=== PATIENT | male | born 1935 | race Hispanic/Latino ===

== ENCOUNTER → 2017-10-10 | Outpatient (CLI) | payer OTHER ==
[~2017-10-10] MED LIST: REGADENOSON 0.4 MG/5 ML PF SYG IVP SCH
== END | disposition home or self-care (01) ==
LOC: SHCH 15:31
PROVIDERS: ATTEND Internal Medicine Cardiovascular Disease
DX: I25.119 Atherosclerotic heart disease of native coronary artery with unspecified angina pectoris (principal); I10 Essential (primary) hypertension
CPT/HCPCS: 78452; 93017; 96374; A9500 ×2; J2785

== ENCOUNTER → 2020-07-14 | Outpatient (CLI) | payer OTHER | END | disposition home or self-care (01) | LOC: RAH 15:13 | PROVIDERS: ATTEND Family Medicine | DX: M25.562 Pain in left knee (principal) | CPT/HCPCS: 73562 ==

== ENCOUNTER → 2020-10-24 | Outpatient (CLI) | payer OTHER | END | disposition home or self-care (01) | LOC: RAH 09:48 | PROVIDERS: ATTEND Internal Medicine | DX: K21.9 Gastro-esophageal reflux disease without esophagitis (principal); R13.10 Dysphagia, unspecified | CPT/HCPCS: 74230; 92611 ==

== ENCOUNTER → 2021-03-15 | Outpatient (CLI) | payer OTHER | END | disposition home or self-care (01) | LOC: SHCH 08:51 | PROVIDERS: ATTEND Internal Medicine Cardiovascular Disease | DX: I10 Essential (primary) hypertension (principal) | CPT/HCPCS: 93306; 93356 ==

== ENCOUNTER 2021-12-24 10:00 | Inpatient (IN) | payer OTHER ==
[~2021-12-24] VITALS: Ht 162.6 cm; Wt 68.0 kg
[2021-12-24 09:46] LABS: BASOPHILS % (AUTO) 0.4 % (0.0-5.0); EOSINOPHILS % (AUTO) 1.2 % (0.0-8.0); HEMATOCRIT 34.1 % (42-54); LYMPHOCYTES % (AUTO) 17.4 % (21.0-51.0); MEAN CORPUSCULAR HGB CONC 32.8 g/dL (32.0-36.0); MEAN CORPUSCULAR VOLUME 97.4 fL (79-99); MONOCYTES % (AUTO) 10.7 % (3.0-13.0); NEUTROPHILS % (AUTO) 70.1 % (40.0-77.0); PLATELET COUNT (AUTO) 233 K/uL (130-400); RED CELL DISTRIBUTION WIDTH 13.3 % (11.0-15.5); WHITE BLOOD COUNT (AUTO) 5.1 K/uL (4.8-10.8)
[2021-12-24 09:47] LABS: APPEARANCE,URINE Clear (CLEAR); BILIRUBIN,URINE Negative (NEGATIVE); COLOR,URINE Yellow (YELLOW); GLUCOSE, URINE (UA) Negative (NEGATIVE); KETONES,URINE 15 mg/dL (NEGATIVE); LEUKOCYTE ESTERASE ,URINE Negative (NEGATIVE); NITRATE,URINE Negative (NEGATIVE); OCCULT BLOOD,URINE Negative (NEGATIVE); PH,URINE 5.5 (5.0-8.0); PROTEIN,URINE POS 1+ mg/dL (NEGATIVE)
[2021-12-24 09:54] LABS: BACTERIA,URINE Rare /HPF (None Seen); CREATININE 0.9 mg/dL (0.5-1.5); MUCUS,URINE Moderate LPF (None Seen); POTASSIUM 4.2 mmol/L (3.5-5.1); RBC,URINE 0-1 /HPF (0-1); SQUAMOUS EPITHELIAL CELL,UR Rare /HPF (0-2); WBC,URINE 0-1 /HPF (0-1)
[2021-12-24 09:57] LABS: INR 1.05 (0.85-1.15); PROTHROMBIN TIME 11.4 SEC (9.6-11.6)
[2021-12-24 10:48] VITALS: BP 145/65
[2021-12-25] MEDS ORDERED: IRON PO (12:09)
[2021-12-25] MEDS ORDERED: METO-391 PO (12:09)
[2021-12-25] MEDS ORDERED: OMEP20CA12 PO (12:09)
[2021-12-25] MEDS ORDERED: LOSA50TA64 PO (12:09)
[2021-12-25] MEDS ORDERED: ATOR40TA71 PO (12:09)
[2021-12-25] MEDS ORDERED: LATA7.5D OU (12:09)
[2021-12-25] MEDS ORDERED: ASPI-1443 PO (12:09)
[2021-12-25] MEDS ORDERED: MIRA25TA PO (12:09)
[2021-12-25] MEDS ORDERED: TAMS-1 PO (12:09)
[2021-12-26] VITALS (25 sets, daily range): BP systolic 86–130; BP diastolic 42–75
[2021-12-26] MEDS ORDERED: CLINDAMYCIN IVPB 900MG/50ML 50 ML IV ONE (07:29)
[2021-12-26] MEDS ORDERED: LACTATED RINGERS 1000ML 1,000 ML IV ONE (07:30)
[2021-12-26] MEDS ORDERED: ACETAMINOPHEN 500 MG TABLET ONE (08:43)
[2021-12-26] MEDS ORDERED: CELECOXIB 200 MG CAP ONE (08:44)
[2021-12-26] MEDS ORDERED: KETOROLAC 15MG/ML VIAL (15MG/ML) ONE (08:44)
[2021-12-26] MEDS ORDERED: TRANEXAMIC ACID 1000MG/10ML ONE ×2 (10:23→15:31)
[2021-12-26] MEDS ORDERED: VANCOMYCIN 1G VIAL ONE (10:36)
[2021-12-26] MEDS ORDERED: NEOSTIGMINE 5MG/5ML SYR IV ONE ×3 (11:06→15:24)
[2021-12-26] MEDS ORDERED: MIDAZOLAM HCL 1 MG/ML 2ML VIAL ONE (11:06)
[2021-12-26] MEDS ORDERED: DEXAMETHASONE SOD PHOSPHATE 10MG/ML 1ML VIAL ONE (11:06)
[2021-12-26] MEDS ORDERED: LIDOCAINE PF 100MG/5ML (2%) SYRINGE 5ML ONE ×2 (11:06→11:08)
[2021-12-26] MEDS ORDERED: SUCCINYLCHOLINE CHLORIDE 20 MG/ML 10 ML VIAL ONE ×2 (11:06→11:07)
[2021-12-26] MEDS ORDERED: GLYCOPYRROLATE 1 MG/5 ML SYRINGE ONE ×2 (11:06→15:24)
[2021-12-26] MEDS ORDERED: PROPOFOL 10 MG/ML 20ML VIAL IV ONE ×2 (11:06→15:26)
[2021-12-26] MEDS ORDERED: FENTANYL CITRATE PF 50 MCG/1 ML 2ML VIAL ONE ×2 (11:07→15:32)
[2021-12-26] MEDS ORDERED: ROCURONIUM 10MG/1ML SYR 10 MG/ML ML ONE ×2 (11:07→11:54)
[2021-12-26] MEDS ORDERED: ROPIVACAINE 0.5% 5MG/ML 30ML IJ ONE (11:12)
[2021-12-26] MEDS ORDERED: PHENYLEPHRINE HCL 10 MG/ML 1ML VIAL IV ONE ×3 (11:35→13:20)
[2021-12-26] MEDS ORDERED: VANCOMYCIN 1G VIAL IRRIG ONE ×2 (12:10)
[2021-12-26] MEDS ORDERED: TRANEXAMIC ACID 1000MG/10ML IV ONE (13:00)
[2021-12-26] MEDS ORDERED: 0.9% NACL 250ML IV SCH (15:30)
[2021-12-26] MEDS ORDERED: DiphenhydrAMINE HCL 50 MG/ML VIAL IVP PRN (15:30)
[2021-12-26] MEDS: 0.9%NACL 1000ML 1,000 ML IV SCH (15:30)
[2021-12-26] MEDS ORDERED: OXYCODONE HCL 5 MG TAB PO PRN ×2 (15:30)
[2021-12-26] MEDS: VANCOMYCIN KIT 1 GM/250 ML IV.KIT IV SCH (15:30)
[2021-12-26] MEDS: ACETAMINOPHEN 500 MG TABLET PO SCH ×2 (15:30→23:47)
[2021-12-26] MEDS ORDERED: POTASSIUM CHLORIDE 20MEQ/100ML 100 ML IV PRN (15:30)
[2021-12-26] MEDS ORDERED: CALCIUM CARB 500MG PO PRN (15:30)
[2021-12-26] MEDS ORDERED: LIDOCAINE HCL-MPF 1% 2ML VIAL IV PRN (15:30)
[2021-12-26] MEDS ORDERED: TRAMADOL HCL 50 MG TABLET PO PRN (15:30)
[2021-12-26] MEDS ORDERED: POTASSIUM CHLORIDE 10% ELIXIR 20 MEQ/15 ML UDCUP PO PRN (15:30)
[2021-12-26] MEDS ORDERED: KCL 20 MEQ ERTAB PO PRN (15:30)
[2021-12-26] MEDS ORDERED: ONDANSETRON 4MG INJ IVP PRN (15:30)
[2021-12-26] MEDS ORDERED: KETOROLAC 15MG/ML VIAL (15MG/ML) IV PRN (15:30)
[2021-12-26] MEDS ORDERED: MEPERIDINE-PF 25 MG/ML SYG ONE (15:56)
[2021-12-26] MEDS: TAMSULOSIN HCL 0.4 MG CAP.ER.24H PO SCH ×2 (21:00→21:10)
[2021-12-26] MEDS: LATANOPROST 2.5 ML DROPS OU SCH (21:00)
[2021-12-26] MEDS ORDERED: FAMOTIDINE 20MG TAB PO SCH (21:00)
[2021-12-26] MEDS: CLINDAMYCIN IVPB 900MG/50ML 50 ML IV SCH (21:09)
[2021-12-26] MEDS: ASPIRIN 81 MG EC TAB PO SCH (21:10)
[2021-12-26] MEDS: CELECOXIB 200 MG CAP PO SCH (21:10)
[2021-12-26] MEDS: METOPROLOL SUCCINATE 50 MG TAB.SR.24H PO SCH (21:11)
[2021-12-27 03:54] LABS: HEMATOCRIT 23.1 % (42-54); MEAN CORPUSCULAR HEMOGLOBIN 30.8 pg (27.0-33.0); MEAN CORPUSCULAR VOLUME 96.3 fL (79-99); RED BLOOD CELL COUNT(AUTO) 2.4 MIL/uL (4.50-6.20); RED CELL DISTRIBUTION WIDTH 13.1 % (11.0-15.5); WHITE BLOOD COUNT (AUTO) 6.5 K/uL (4.8-10.8)
[2021-12-27 04:10] LABS: CREATININE 0.9 mg/dL (0.5-1.5); POTASSIUM 4.5 mmol/L (3.5-5.1)
[2021-12-27 04:11] VITALS: BP 108/55
[2021-12-27] MEDS: 0.9%NACL 1000ML 1,000 ML IV SCH ×2 (06:57→11:28)
[2021-12-27 07:00] VITALS: BP 115/64
[2021-12-27] MEDS: ASPIRIN 81 MG EC TAB PO SCH ×3 (08:23→21:27)
[2021-12-27] MEDS: PANTOPRAZOLE 40 MG TAB DR PO SCH (08:23)
[2021-12-27] MEDS: TAMSULOSIN HCL 0.4 MG CAP.ER.24H PO SCH ×5 (08:24→21:27)
[2021-12-27] MEDS: ATORVASTATIN 40 MG TABLET PO SCH (08:24)
[2021-12-27] MEDS: CELECOXIB 200 MG CAP PO SCH ×2 (08:24→21:27)
[2021-12-27] MEDS: POLYETHYLENE GLYCOL 3350 17 GM POWD.PACK PO SCH (08:24)
[2021-12-27] MEDS: Iron 28 MG PO SCH (08:33)
[2021-12-27] MEDS ORDERED: CLINDAMYCIN IVPB 900MG/50ML 50 ML IV SCH (09:00)
[2021-12-27] MEDS: CLINDAMYCIN IVPB 900MG/50ML 50 ML IV SCH (09:00)
[2021-12-27] MEDS: METOPROLOL SUCCINATE 50 MG TAB.SR.24H PO SCH ×2 (09:00→21:27)
[2021-12-27] MEDS: LOSARTAN 50 MG TABLET PO SCH (09:00)
[2021-12-27] MEDS: FERROUS FUMARATE 324 MG TABLET PO PRN (09:00)
[2021-12-27 11:00] VITALS: BP 115/56
[2021-12-27] MEDS: ACETAMINOPHEN 500 MG TABLET PO SCH ×2 (14:28→21:28)
[2021-12-27 15:00] VITALS: BP 97/47
[2021-12-27] MEDS: VANCOMYCIN KIT 1 GM/250 ML IV.KIT IV SCH (16:35)
[2021-12-27 20:08] VITALS: BP 112/58
[2021-12-27] MEDS: LATANOPROST 2.5 ML DROPS OU SCH (21:00)
[2021-12-27 23:50] VITALS: BP 99/50
[2021-12-28 04:18] VITALS: BP 90/47
[2021-12-28 05:01] LABS: HEMATOCRIT 21.8 % (42-54)
[2021-12-28 06:00] VITALS: BP 115/60
[2021-12-28] MEDS: ACETAMINOPHEN 500 MG TABLET PO SCH ×3 (06:01→20:14)
[2021-12-28 08:00] VITALS: BP 119/46
[2021-12-28] MEDS: TAMSULOSIN HCL 0.4 MG CAP.ER.24H PO SCH ×5 (09:00→20:16)
[2021-12-28] MEDS: Iron 28 MG PO SCH (09:00)
[2021-12-28] MEDS: METOPROLOL SUCCINATE 50 MG TAB.SR.24H PO SCH ×2 (09:00→20:14)
[2021-12-28] MEDS: ASPIRIN 81 MG EC TAB PO SCH ×3 (09:00→20:13)
[2021-12-28] MEDS: LOSARTAN 50 MG TABLET PO SCH (09:00)
[2021-12-28] MEDS: ATORVASTATIN 40 MG TABLET PO SCH (09:49)
[2021-12-28] MEDS: PANTOPRAZOLE 40 MG TAB DR PO SCH (09:49)
[2021-12-28] MEDS: FERROUS FUMARATE 324 MG TABLET PO PRN (09:49)
[2021-12-28] MEDS: POLYETHYLENE GLYCOL 3350 17 GM POWD.PACK PO SCH (09:50)
[2021-12-28] MEDS: CELECOXIB 200 MG CAP PO SCH ×2 (09:51→20:13)
[2021-12-28 12:00] VITALS: BP 132/57
[2021-12-28 16:00] VITALS: BP 122/49
[2021-12-28 19:34] LABS: HEMATOCRIT 27.3 % (42-54)
[2021-12-28] MEDS: LATANOPROST 2.5 ML DROPS OU SCH (20:16)
[2021-12-29] MEDS ORDERED: BISACODYL 10 MG SUPP.RECT RC PRN (15:30)
== END 2021-12-28 20:30 | DRG 470 ==
LOC: DAHIP 12-26 06:25 → 4BH 12-26 16:55
PROVIDERS: ADMIT Orthopaedic Surgery; ATTEND Orthopaedic Surgery
PROC: 0SRB0JZ Replacement of Left Hip Joint with Synthetic Substitute, Open Approach (ICD-10-PCS; principal; 2021-12-26 10:00)
PROC: 30233N1 Transfusion of Nonautologous Red Blood Cells into Peripheral Vein, Percutaneous Approach (ICD-10-PCS; 2021-12-28)
DX: M16.12 Unilateral primary osteoarthritis, left hip (principal); D62 Acute posthemorrhagic anemia; R26.89 Other abnormalities of gait and mobility; M21.70 Unequal limb length (acquired), unspecified site; G89.29 Other chronic pain; Z20.822 Contact with and (suspected) exposure to COVID-19; E78.5 Hyperlipidemia, unspecified; I11.9 Hypertensive heart disease without heart failure; N40.0 Benign prostatic hyperplasia without lower urinary tract symptoms; Z95.5 Presence of coronary angioplasty implant and graft; Z88.0 Allergy status to penicillin
CPT/HCPCS: 36415; 36430; 73503; 80048; 81001; 82948; 85014; 85018; 85025; 85027; 85610; 86850; 86900; 86901; 86923; 87077; 87088; 87186; 87635; 87641; 97039; G0378; J0330; J1100; J1885; J2001; J2175; J2250; J2370; J2704; J2710; J2795; J3010; J3370; J3490; J7030; J7120; P9016

== ENCOUNTER 2022-05-17 15:48 | Emergency (ER) | payer OTHER ==
[~2022-05-17] VITALS: Ht 160 cm; Wt 66.7 kg
[~2022-05-17 15:48] MED LIST changes: +ASPI-1443 PO; +ATOR40TA71 PO; +IRON PO; +LATA7.5D OU; +LOSA50TA64 PO; +METO-391 PO; +MIRA25TA PO; +OMEP20CA12 PO; -REGADENOSON 0.4 MG/5 ML PF SYG IVP SCH; +TAMS-1 PO
[2022-05-17] MEDS: ONDANSETRON 4MG INJ IVP ONE (16:30)
[2022-05-17 16:37] LABS: BASOPHILS % (AUTO) 0.5 % (0.0-5.0); EOSINOPHILS % (AUTO) 1.4 % (0.0-8.0); HEMATOCRIT 36.6 % (42-54); LYMPHOCYTES % (AUTO) 25.7 % (21.0-51.0); MEAN CORPUSCULAR HEMOGLOBIN 30.7 pg (27.0-33.0); MEAN CORPUSCULAR HGB CONC 34.2 g/dL (32.0-36.0); MEAN CORPUSCULAR VOLUME 89.9 fL (79-99); MONOCYTES % (AUTO) 10.6 % (3.0-13.0); NEUTROPHILS % (AUTO) 61.5 % (40.0-77.0); PLATELET COUNT (AUTO) 123 K/uL (130-400); RED BLOOD CELL COUNT(AUTO) 4.07 MIL/uL (4.50-6.20); RED CELL DISTRIBUTION WIDTH 15.2 % (11.0-15.5); WHITE BLOOD COUNT (AUTO) 3.7 K/uL (4.8-10.8)
[2022-05-17 16:48] LABS: CREATININE 1.1 mg/dL (0.5-1.5); POTASSIUM 4.3 mmol/L (3.5-5.1)
[2022-05-17 16:58] LABS: ALBUMIN 3.9 g/dL (3.5-5.0); TOTAL PROTEIN, SERUM 7.5 g/dL (6.0-8.3)
[2022-05-17] MEDS ORDERED: IOHEXOL 350 MG/ML 100ML INFUS..BTL IV ONE (17:04)
[2022-05-17 18:44] VITALS: BP 139/66
[2022-05-17] MEDS: MORPHINE 4 MG SYG ONE (18:45)
[2022-05-17] MEDS: MORPHINE 4 MG SYG IVP ONE (18:45)
== END 2022-05-17 18:55 | disposition home or self-care (01) ==
LOC: EDH 15:48
DX: K59.00 Constipation, unspecified (principal); E78.00 Pure hypercholesterolemia, unspecified; I10 Essential (primary) hypertension; Z88.0 Allergy status to penicillin; Z79.82 Long term (current) use of aspirin
CPT/HCPCS: 99285; 74177; 96374; 71045; 84484; 80053; 85025; 36415; 93005; J2405; J2270; Q9967

== ENCOUNTER → 2022-12-26 | Outpatient (CLI) | payer OTHER | END | disposition home or self-care (01) | LOC: SHCH 09:46 | PROVIDERS: ATTEND Internal Medicine Cardiovascular Disease | DX: I08.3 Combined rheumatic disorders of mitral, aortic and tricuspid valves (principal); I27.20 Pulmonary hypertension, unspecified; I25.10 Atherosclerotic heart disease of native coronary artery without angina pectoris | CPT/HCPCS: 93306 ==

== ENCOUNTER → 2022-12-31 | Outpatient (CLI) | payer OTHER ==
[~2022-12-31] MED LIST changes: +REGADENOSON 0.4 MG/5 ML PF SYG IVP ONE
== END | disposition home or self-care (01) ==
LOC: SHCH 07:48
PROVIDERS: ATTEND Internal Medicine Cardiovascular Disease
DX: I25.10 Atherosclerotic heart disease of native coronary artery without angina pectoris (principal); I34.0 Nonrheumatic mitral (valve) insufficiency; Z79.899 Other long term (current) drug therapy
CPT/HCPCS: 78452; 96374; 93017; J2785; A9500 ×2

== ENCOUNTER 2023-01-13 05:58 | Day surgery (SDC) | payer OTHER ==
[2023-01-10 10:43] VITALS: BP 136/66
[2023-01-10 10:47] LABS: BASOPHILS % (AUTO) 0.3 % (0.0-5.0); EOSINOPHILS % (AUTO) 0.7 % (0.0-8.0); HEMATOCRIT 37.4 % (42-54); MEAN CORPUSCULAR HEMOGLOBIN 32.2 pg (27.0-33.0); MEAN CORPUSCULAR HGB CONC 32.6 g/dL (32.0-36.0); MEAN CORPUSCULAR VOLUME 98.7 fL (79-99); MONOCYTES % (AUTO) 8.8 % (3.0-13.0); NEUTROPHILS % (AUTO) 61.2 % (40.0-77.0); PLATELET COUNT (AUTO) 104 K/uL (130-400); RED BLOOD CELL COUNT(AUTO) 3.79 MIL/uL (4.50-6.20); RED CELL DISTRIBUTION WIDTH 13.7 % (11.0-15.5); WHITE BLOOD COUNT (AUTO) 3.1 K/uL (4.8-10.8)
[2023-01-10 10:47] LABS: APPEARANCE,URINE CLEAR (CLEAR); BILIRUBIN,URINE NEGATIVE (NEGATIVE); COLOR,URINE YELLOW (YELLOW); GLUCOSE, URINE (UA) NEGATIVE (NEGATIVE); KETONES,URINE NEGATIVE (NEGATIVE); LEUKOCYTE ESTERASE ,URINE NEGATIVE Leu/uL (NEGATIVE); NITRATE,URINE NEGATIVE (NEGATIVE); OCCULT BLOOD,URINE NEGATIVE (NEGATIVE); PH,URINE 5.5 (5.0-8.0); PROTEIN,URINE 30 mg/dL (NEGATIVE); UROBILINOGEN,URINE 0.2 mg/dL (0.2-1.0)
[2023-01-10 10:54] LABS: POTASSIUM 4.3 mmol/L (3.5-5.1)
[2023-01-10 10:56] LABS: INR 1.05 (0.85-1.15); PROTHROMBIN TIME 11.4 SEC (9.6-11.6)
[2023-01-10 10:57] LABS: PARTIAL THROMBOPLASTIN TIME 30.1 SEC (26.3-35.5)
[2023-01-10 11:03] LABS: MUCUS,URINE RARE LPF (None Seen); RBC,URINE 0-1 /HPF (0-1); SQUAMOUS EPITHELIAL CELL,UR RARE /HPF (0-2); WBC,URINE 0-1 /HPF (0-1)
[2023-01-10 11:08] LABS: B-TYPE NATRIURETIC PEPTIDE 1130 pg/mL (0-100)
[~2023-01-13] VITALS: Ht 157.5 cm; Wt 59.8 kg
[2023-01-13] VITALS (12 sets, daily range): BP systolic 104–138; BP diastolic 46–73
[~2023-01-13 05:58] MED LIST changes: +FURO20TA4 PO; -IRON PO; -LATA7.5D OU; +LISI2.5T13 PO; -LOSA50TA64 PO; -MIRA25TA PO; +MIRA50TA PO; -OMEP20CA12 PO; +POTA10CA85 PO; -REGADENOSON 0.4 MG/5 ML PF SYG IVP ONE; +SILO8CAP6 PO; -TAMS-1 PO
[2023-01-13] MEDS ORDERED: 0.9%NACL 1000ML 1,000 ML IV ONE (06:52)
[2023-01-13] MEDS ORDERED: LIDOCAINE HCL 400MG/20ML VIAL ONE (07:19)
[2023-01-13] MEDS ORDERED: VERAPAMIL HCL 2.5 MG/ML VIAL ONE (07:20)
[2023-01-13] MEDS ORDERED: FENTANYL CITRATE PF 50 MCG/1 ML 2ML VIAL ONE (07:20)
[2023-01-13] MEDS ORDERED: MIDAZOLAM HCL 1 MG/ML 2ML VIAL ONE (07:20)
[2023-01-13] MEDS ORDERED: NITROGLYCERIN 50MG VIAL ONE (07:20)
[2023-01-13] MEDS ORDERED: IOHEXOL 350 MG/ML 100ML INFUS..BTL IV ONE (07:20)
[2023-01-13] MEDS ORDERED: HEPARIN 10,000 UNIT/10ML (1,000 UNIT/ML) VIAL ONE (07:20)
[2023-01-13] MEDS ORDERED: IOHEXOL-350 50ML VIAL IV ONE (07:58)
[2023-01-13] MEDS ORDERED: 0.9%NACL 1000ML 1,000 ML IV SCH (08:30)
[2023-01-13] MEDS ORDERED: DEXTROSE 50%-WATER 50 ML DISP.SYRIN IV PRN (08:30)
[2023-01-13] MEDS ORDERED: GLUCAGON 1MG KIT 1 MG ML IM PRN (08:30)
== END 2023-01-13 14:50 | disposition home or self-care (01) ==
LOC: DAH 05:58
PROVIDERS: ATTEND Student in an Organized Health Care Education/Training Program
DX: I25.119 Atherosclerotic heart disease of native coronary artery with unspecified angina pectoris (principal); I44.7 Left bundle-branch block, unspecified; I11.0 Hypertensive heart disease with heart failure; I50.22 Chronic systolic (congestive) heart failure; I25.5 Ischemic cardiomyopathy; E78.5 Hyperlipidemia, unspecified; Z98.890 Other specified postprocedural states; Z95.5 Presence of coronary angioplasty implant and graft; Z88.0 Allergy status to penicillin; Z79.01 Long term (current) use of anticoagulants; Z79.82 Long term (current) use of aspirin; Z79.899 Other long term (current) drug therapy
CPT/HCPCS: 80048; 83880; 85025; 85610; 85730; 81001; 36415; 71045; 93005; 93458; C1769 ×2; C1894; J3010; J3490 ×3; J7030; J1644 ×2; J2250; Q9967 ×2; A4215; A4222; A4221; A4663; A4216; A4606; Q9965; A4223 ×3; 96360; 96361; 99156; 99157

== ENCOUNTER 2023-02-14 06:42 | Day surgery (SDC) | payer OTHER ==
[2023-02-12 13:55] LABS: BASOPHILS % (AUTO) 0.6 % (0.0-5.0); EOSINOPHILS % (AUTO) 0.6 % (0.0-8.0); HEMATOCRIT 39.6 % (42-54); LYMPHOCYTES % (AUTO) 34.5 % (21.0-51.0); MEAN CORPUSCULAR HEMOGLOBIN 31.9 pg (27.0-33.0); MEAN CORPUSCULAR HGB CONC 32.8 g/dL (32.0-36.0); MEAN CORPUSCULAR VOLUME 97.1 fL (79-99); MONOCYTES % (AUTO) 8.3 % (3.0-13.0); NEUTROPHILS % (AUTO) 55.7 % (40.0-77.0); PLATELET COUNT (AUTO) 106 K/uL (130-400); RED BLOOD CELL COUNT(AUTO) 4.08 MIL/uL (4.50-6.20); RED CELL DISTRIBUTION WIDTH 13.6 % (11.0-15.5); WHITE BLOOD COUNT (AUTO) 3.3 K/uL (4.8-10.8)
[2023-02-12 13:56] VITALS: BP 140/62
[2023-02-12 14:01] LABS: CREATININE 1.1 mg/dL (0.5-1.5); POTASSIUM 4.1 mmol/L (3.5-5.1)
[2023-02-12 14:10] LABS: INR 0.98 (0.85-1.15); PROTHROMBIN TIME 11.4 SEC (9.6-11.6)
[2023-02-12 14:11] LABS: PARTIAL THROMBOPLASTIN TIME 29.6 SEC (26.3-35.5)
[~2023-02-14] VITALS: Ht 162.6 cm; Wt 57.2 kg
[~2023-02-14 06:42] MED LIST changes: +0.9%NACL 1000ML 1,000 ML IV SCH; +CLINDAMYCIN IVPB 900MG/50ML 50 ML IV SCH; -FURO20TA4 PO; +POTA-200 PO; -POTA10CA85 PO
[2023-02-14] MEDS ORDERED: LACTATED RINGERS 1000ML 1,000 ML IV ONE (06:59)
[2023-02-14 07:15] VITALS: BP 132/73
== END 2023-02-14 10:18 | disposition home or self-care (01) ==
LOC: DAH 06:42
PROVIDERS: ATTEND Surgery
DX: K40.90 Unilateral inguinal hernia, without obstruction or gangrene, not specified as recurrent (principal); Z20.822 Contact with and (suspected) exposure to COVID-19; I44.7 Left bundle-branch block, unspecified; Z53.8 Procedure and treatment not carried out for other reasons; Z88.8 Allergy status to other drugs, medicaments and biological substances; Z79.01 Long term (current) use of anticoagulants
CPT/HCPCS: 93005; 87426; 80048; 85025; 85610; 85730; 36415; A6260; A4663; J7120; J3490; A4223; A4222; A4600

== ENCOUNTER 2023-11-07 14:16 | Emergency (ER) | payer OTHER ==
[~2023-11-07] VITALS: Ht 162.6 cm; Wt 56.2 kg
[~2023-11-07 14:16] MED LIST changes: -0.9%NACL 1000ML 1,000 ML IV SCH; -CLINDAMYCIN IVPB 900MG/50ML 50 ML IV SCH
[2023-11-07 14:33] VITALS: BP 125/77; PULSE 76; RESP 18
== END 2023-11-07 16:40 | disposition home or self-care (01) ==
LOC: EDH 14:16
DX: N44.2 Benign cyst of testis (principal); E78.00 Pure hypercholesterolemia, unspecified; I10 Essential (primary) hypertension
CPT/HCPCS: 76870

== ENCOUNTER 2024-04-06 18:28 | Emergency (ER) | payer OTHER ==
[~2024-04-06] VITALS: Ht 162.6 cm; Wt 59.0 kg
[~2024-04-06 18:28] MED LIST changes: -SILO8CAP6 PO; +SILO8CAP8 PO
[2024-04-06 19:37] LABS: BASOPHILS # (AUTO) 0.01 K/uL (0.00-0.20); BASOPHILS % (AUTO) 0.3 % (0.0-5.0); EOSINOPHILS # (AUTO) 0.05 K/uL (0.00-0.70); EOSINOPHILS % (AUTO) 1.4 % (0.0-8.0); HEMATOCRIT 34.9 % (42-54); IMMATURE GRANULOCYTE ABSOLUTE 0.01 K/uL (0-1); LYMPHOCYTES # (AUTO) 0.7 K/uL (1.0-4.8); LYMPHOCYTES % (AUTO) 17.9 % (21.0-51.0); MEAN CORPUSCULAR VOLUME 97.2 fL (79-99); MONOCYTES # (AUTO) 0.5 K/uL (0.1-1.0); MONOCYTES % (AUTO) 13.2 % (3.0-13.0); NEUTROPHILS # (AUTO) 2.4 K/uL (1.8-7.7); NEUTROPHILS % (AUTO) 66.9 % (40.0-77.0); PLATELET COUNT (AUTO) 85 K/uL (130-400); RED BLOOD CELL COUNT(AUTO) 3.59 MIL/uL (4.50-6.20); RED CELL DISTRIBUTION WIDTH 14.1 % (11.0-15.5); WHITE BLOOD COUNT (AUTO) 3.6 K/uL (4.8-10.8)
[2024-04-06 19:52] LABS: CREATININE 1.2 mg/dL (0.5-1.3); POTASSIUM 4.1 mmol/L (3.5-5.1)
[2024-04-06] MEDS: 0.9%NACL 1000ML 1,000 ML IV ONE (19:52)
[2024-04-06 19:57] VITALS: BP 121/67; PULSE 74; RESP 16; O2SAT 97
== END 2024-04-06 20:22 | disposition home or self-care (01) ==
LOC: EDH 18:28
DX: D64.9 Anemia, unspecified (principal); E87.1 Hypo-osmolality and hyponatremia; I95.9 Hypotension, unspecified; E78.00 Pure hypercholesterolemia, unspecified; I11.0 Hypertensive heart disease with heart failure; I50.9 Heart failure, unspecified; Z79.82 Long term (current) use of aspirin; Z79.899 Other long term (current) drug therapy; Z88.0 Allergy status to penicillin; Z98.890 Other specified postprocedural states
CPT/HCPCS: 99284; 80048; 85025; 36415; 93005; J7030

== ENCOUNTER → 2024-10-09 | Outpatient (CLI) | payer OTHER ==
[~2024-10-09] MED LIST changes: +CHOL500062 PO; +FURO20TA4 PO; +MIRT-93 PO; +OMEP40CA21 PO; -POTA-200 PO; +POTA20PA41 PO; +SILO4CAP PO; -SILO8CAP8 PO
== END | disposition home or self-care (01) ==
LOC: SHCH 14:55
PROVIDERS: ATTEND Internal Medicine Cardiovascular Disease
DX: I20.9 Angina pectoris, unspecified (principal)
CPT/HCPCS: 93306

== ENCOUNTER 2025-08-05 11:51 | Inpatient (IN) | payer OTHER ==
[2025-08-05] VITALS (7 sets, daily range): BP systolic 104–130; BP diastolic 57–65; PULSE 71–85; RESP 18–20; TEMP 97.5–98.5; O2SAT 94–99
[~2025-08-05] VITALS: Ht 162.6 cm; Wt 47.6 kg
--- NOTE | 2025-08-05 12:27 | EKG ---
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
[2025-08-05 12:36] LABS: IMMATURE GRANULOCYTE ABSOLUTE 0.00 K/uL (0-1); NUCLEATED RED BLOOD CELLS 0.0 % (0.0-0.19); PLATELET COUNT (AUTO) 76 K/uL (130-400); RED BLOOD CELL COUNT(AUTO) 3.46 MIL/uL (4.50-6.20); RED CELL DISTRIBUTION WIDTH 14.6 % (11.0-15.5); WHITE BLOOD COUNT (AUTO) 2.4 K/uL (4.8-10.8)
--- NOTE | 2025-08-05 12:45 | NUR ---
PATIENT IN ROOM
--- NOTE | 2025-08-05 12:49 | ERN ---
General Chief Complaint: LOWER EXTREMITY EDEMA Stated Complaint: SWELLING OF BILATERAL LEGS Time Seen by MD: 12:16 History of Present Illness Initial Comments 89-year-old male history of CHF, high cholesterol, hypertension, presents for leg swelling. Patient reports that over the last week or so he has had bilateral leg swelling up to his knees. It is increasing. He has had this on and off in the past. She takes Lasix 20 mg daily. He does have a history of heart failure. He is pending an evaluation by Dr. Rowell as an outpatient. He reports mild dyspnea at night while lying flat. He is ambulatory. Denies chest pain, cough, congestion shortness of breath. Allergies: Coded Allergies: Penicillins (Unverified Allergy, Intermediate, SWELLING, 05/09/16) RASH Home Meds Reported Medications Cyanocobalamin (Vitamin B-12) (Vitamin B12) 2,500 Mcg Tablet, 500 MCG PO DAILY, TAB 08/05/25 Famotidine (Famotidine) 40 Mg Tablet, 40 MG PO DAILY, TAB 08/05/25 Spironolactone (Spironolactone) 25 Mg Tablet, 25 MG PO DAILY, TAB 08/05/25 Sacubitril/Valsartan (Entresto 49 mg-51 mg Tablet) 49 Mg-51 Mg Tablet, 1 TAB PO BID for 30 Days, #60 TAB 0 Refills 08/05/25 Silodosin (Rapaflo) 8 Mg Capsule, 8 MG PO HS, CAP 08/05/25 Mirtazapine (Mirtazapine) 30 Mg Tablet, 30 MG PO HSPRN, TAB 04/22/24 Cholecalciferol (Vitamin D3) (Vitamin D3) 125 Mcg (5000 Unit) Tab.rapdis, 125 MCG PO AM, TAB 04/22/24 Furosemide (Furosemide) 20 Mg Tablet, 20 MG PO AM, TAB 04/22/24 Aspirin (Aspirin EC) 81 Mg Tablet.dr, 81 MG PO DAILY, TAB 12/25/21 Metoprolol Succinate (Metoprolol Succinate) 50 Mg Tab.er.24h, 25 MG PO DAILY, TAB 12/25/21 Atorvastatin Calcium (Atorvastatin Calcium) 40 Mg Tablet, 40 MG PO HS, TAB 12/25/21 Discontinued Reported Medications Omeprazole (Omeprazole) 40 Mg Capsule.dr, 40 MG PO AM, CAP 04/22/24 Potassium Chloride (Klor-Con) 20 Meq Packet, 20 MEQ PO AM, PKT 04/22/24 Silodosin (Silodosin) 4 Mg Capsule, 4 MG PO HS, CAP 04/22/24 Lisinopril (Lisinopril) 2.5 Mg Tablet, 2.5 MG PO DAILY, TAB 01/10/23 Mirabegron (Myrbetriq) 50 Mg Tab.er.24h, 50 MG PO HS, TAB 01/10/23 Past Medical History Past Medical History: CHF, High Cholesterol, Hypertension Past Surgical History: Other Surgical History Other: HIP SURGERY, TOOTH REMOVALX3, HERNIA REPAIR, CARDIAC STENTS ROS Dictation CONSTITUTIONAL: No chills, no fever, no weakness, no diaphoresis, no malaise. HEAD/FACE: No signs of trauma. EENT: No eye pain, no blurred vision, no tearing, no double vision, no ear pain, no ear discharge, no nose pain, no nasal congestion, no throat pain, no throat swelling, no mouth pain. RESPIRATORY: Mild orthopnea CARDIOVASCULAR: No chest pain, no edema, no palpitations, no syncope. GASTROINTESTINAL/ABDOMINAL: No abdominal pain, no constipation, no diarrhea, no nausea, no vomiting. GENITOURINARY: No abnormal discharge, no dysuria, no frequent urination, no hematuria. No complaints of pain in the genitals. MUSCULOSKELETAL: leg swelling bilat INTEGUMENTARY: No change in color, no change in hair/nails, no dryness, no lesion, no lumps, no rash. NEUROLOGICAL/PSYCH: No anxiety, not depressed, no emotional problem, no headache, no numbness, no pre-existing deficit, no history of seizures, no tremors, no weakness. HEMATOLOGIC/LYMPHATIC: Not anemic, no history of blood clots, no apparent bleeding, no bruising, glands not swollen. All Systems Negative, Except as Noted. Physical Exam Physical Exam Dictation VITAL SIGNS: Reviewed. GENERAL APPEARANCE: Alert, oriented x3, no acute distress, obese. HEAD AND FACE: Non-traumatic. EYES: PERRL, pink conjunctivas, eyelid no trauma, anterior chamber clear. EARS: Pinnas intact and no signs of trauma or erythema. Ear canals clear and no discharge. TMs no erythema. NOSE: No discharge, no bleeding. OROPHARYNX: Mouth normal, teeth no caries, tongue pink. Pharynx clear, no erythema. Tonsils no exudates, no abscesses noted. Mucous membrane moist. NECK: Supple, non-tender, no thyromegaly, no masses, no JVD, no bruits. BREAST: Deferred. CHEST: No tenderness, no crepitus, no paradoxical movement, no retractions. LUNGS: Clear, well-ventilated, symmetric, no rales, no wheezing, no rhonchi, no stridor, good breath sounds bilaterally. HEART: Regular rate, regular rhythm, no murmur, no gallops. VASCULAR: No peripheral edema. ABDOMEN: Soft, positive bowel sounds, nondistended, no guarding, nontender, no rebound, no masses no hepatomegaly, no splenomegaly, no David's sign, no hernias. RECTAL: Deferred. GENITAL: Deferred. NEUROLOGICAL: Normal speech, gross motor function intact, gross sensory function intact. MUSCULOSKELETAL: 1+ pitting edema bilateral legs up to the knee EXTREMITIES: Nontender, full range of motion. SKIN: Color pink, dry, no turgor, no rash, no lacerations, no abrasions, no contusions. LYMPHATICS: Deferred. Results Laboratory and Microbiology Lab and Micro Result Laboratory Tests Test 08/05/25 12:24 08/05/25 14:19 White Blood Count 2.4 K/uL (4.8-10.8) L Red Blood Count 3.46 MIL/uL (4.50-6.20) L Hemoglobin 11.1 g/dL (14.0-18.0) L Hematocrit 34.3 % (42-54) L Mean Corpuscular Volume 99.1 fL (79-99) H Mean Corpuscular Hemoglobin 32.1 pg (27.0-33.0) Mean Corpuscular Hemoglobin Concent 32.4 g/dL (32.0-36.0) Red Cell Distribution Width 14.6 % (11.0-15.5) Platelet Count 76 K/uL (130-400) L Mean Platelet Volume 11.3 fL (7.5-10.5) H Immature Granulocyte % (Auto) 0.0 % (0-1) Neutrophils (%) (Auto) 68.8 % (40.0-77.0) Lymphocytes (%) (Auto) 22.6 % (21.0-51.0) Monocytes (%) (Auto) 8.2 % (3.0-13.0) Eosinophils (%) (Auto) 0.4 % (0.0-8.0) Basophils (%) (Auto) 0.0 % (0.0-5.0) Neutrophils # (Auto) 1.7 K/uL (1.8-7.7) L Lymphocytes # (Auto) 0.6 K/uL (1.0-4.8) L Monocytes # (Auto) 0.2 K/uL (0.1-1.0) Eosinophils # (Auto) 0.01 K/uL (0.00-0.70) Basophils # (Auto) 0.00 K/uL (0.00-0.20) Absolute Immature Granulocyte (auto 0.00 K/uL (0-1) Segmented Neutrophils % 71 % (40-70) H Lymphocytes % (Manual) 22 % (22-44) Monocytes % (Manual) 6 % (2-9) Basophils % (Manual) 1 % (0-2) Nucleated Red Blood Cells 0.0 % (0.0-0.19) Differential Comment MANUAL DIFFERENTIAL White Cell Morphology Comment NORMAL Platelet Morphology Comment DECREASED Red Blood Cell Morphology See comments Sodium Level 140 mmol/L (136-145) Potassium Level 4.4 mmol/L (3.5-5.1) Chloride Level 103 mmol/L (101-111) Carbon Dioxide Level 31 mmol/L (21-32) Blood Urea Nitrogen 25 mg/dL (7-18) H Creatinine 1.2 mg/dL (0.5-1.3) Glomerular Filtration Rate Calc 58 mL/min (>90) Random Glucose 122 mg/dL (70-105) H Total Calcium 9.1 mg/dL (8.5-10.1) Total Creatine Kinase 63 U/L (21-232) Troponin I High Sensitivity 48.2 ng/L (4-75) B-Type Natriuretic Peptide 3020 pg/mL (0-100) H Urine Color LIGHT-YELLOW (YELLOW) Urine Appearance CLEAR (CLEAR) Urine pH 6.5 (5.0-8.0) Urine Specific [place] 1.010 (1.001-1.031) Urine Protein NEGATIVE mg/dL (NEGATIVE) Urine Glucose (UA) NEGATIVE mg/dL (NEGATIVE) Urine Ketones NEGATIVE mg/dL (NEGATIVE) Urine Occult Blood NEGATIVE (NEGATIVE) Urine Nitrate NEGATIVE (NEGATIVE) Urine Bilirubin NEGATIVE mg/dL (NEGATIVE) Urine Urobilinogen 0.2 mg/dL (0.2-1.0) Urine Leukocyte Esterase NEGATIVE Qasim/uL MDM CC: Leg swelling, mild orthopnea Historian: Patient Limitations by social determinants of health: None Comorbidities: Advanced age, high cholesterol, CAD, CHF, on spironolactone and Lasix 20 mg daily Differential diagnosis: CHF exacerbation, kidney disease, liver disease, ACS, other Vital signs: BP 107/58, otherwise unremarkable vital signs. Oxygen saturation stable. Clinically patient has a rales right lower lung and 1+ pitting edema to the legs up to the knees. EKG: Sinus rhythm, rate 73, normal axis, good R-wave progression, LVH criteria, no STEMI. Independently interpreted by me. Labs show leukopenia 2.4, anemia 11.1 macrocytic, thrombocytopenia 76. Pancytopenic. Has been chemistries stable. Troponin 48. BNP elevated 3000. Consistent with presentation. CXR: Borderline cardiomegaly, mild vascular congestion, pleural effusion in the right. Independently interpreted by me. Patient's symptoms are most consistent with a acute CHF exacerbation with fluid overload. Pedal edema right pleural effusion. Patient does not has been cardiology follow up in the area, he has a an appointment that is scheduled three months from now. Due to the patient's multiple comorbidities I think he would benefit from diuresis and a cardiology consultation here in the hospital. He received 40 mg of IV Lasix with some urinary output down in the ED. We will admit. Hospitalist consulted. ED Course Orders Procedure Category Date Status Time Cardiac Panel LAB 08/05/25 Complete 12:17 Cbc With Differential LAB 08/05/25 Complete 12:17 Basic Metabolic Panel LAB 08/05/25 Complete 12:17 Urinalysis Profile LAB 08/05/25 Complete 12:17 Chest 1vw RAD 08/05/25 Resulted 12:17 12 Lead Ekg Tracing- EKG 08/05/25 Complete Technical 12:17 Manual Differential LAB 08/05/25 Complete 12:24 Furosemide 40mg Vial PHA 08/05/25 Complete (Lasix 40mg Vial) 13:00 B-Type Natriuretic LAB 08/05/25 Complete Peptide 13:12 Current Medications Medications (Trade) Dose Ordered Sig/Rossy Route PRN Reason Start Time Stop Time Status Last Admin Dose Admin Furosemide (LASix 40MG VIAL) 40 mg ONCE ONCE IV 08/05/25 13:00 08/05/25 13:01 DC 08/05/25 13:00 Vital Signs Date Time Temp Pulse Resp B/P (MAP) Pulse Ox O2 Delivery O2 Flow Rate FiO2 08/05/25 12:50 97.9 74 20 107/58 100 Room Air* 0 21 08/05/25 11:53 97.9 74 20 107/58 100 Room Air DX & DISP Disposition: Inpatient Departure Impression: Primary Impression: Acute exacerbation of CHF (congestive heart failure) Additional Impression: Pleural effusion, right Condition: Stable Referrals: SUMANTH GALLEGOS (PCP) ANGEL YU DO Aug 05, 2025 12:49
[2025-08-05 12:50] LABS: CREATINE KINASE, TOTAL 63.0 U/L (21-232); CREATININE 1.2 mg/dL (0.5-1.3); GLOMERULAR FILTR. RATE CALC 58.0 mL/min (>90); GLUCOSE,RANDOM 122.0 mg/dL (70-105); SODIUM SERUM 140.0 mmol/L (136-145); UREA NITROGEN, BLOOD 25.0 mg/dL (7-18)
--- NOTE | 2025-08-05 14:04 | HMCIMG ---
EXAM: CR Chest, 1 View. CLINICAL HISTORY: edema COMPARISON: Radiograph dated January 10, 2023 FINDINGS: Mild pulmonary edema. Small right pleural effusion. No pneumothorax. Mild to moderate cardiomegaly and central pulmonary vascular congestion. IMPRESSION: 1. Mild pulmonary edema with small right pleural effusion. 2. Mild to moderate cardiomegaly and central pulmonary vascular congestion. /[place]
[2025-08-05 14:10] LABS: BASOPHILS % (MANUAL) 1 % (0-2); LYMPHOCYTES % (MANUAL) 22 % (22-44); MAN.DIFF COMMENT-IMPRESSION MANUAL DIFFERENTIAL; MONOCYTES % (MANUAL) 6 % (2-9); SEGMENTED NEUTROPHILS % 71 % (40-70); WBC MORPHOLOGY NORMAL
[2025-08-05 14:11] LABS: PLATELET MORPHOLOGY COMMENT DECREASED
[2025-08-05 14:36] LABS: APPEARANCE,URINE CLEAR (CLEAR); GLUCOSE, URINE (UA) NEGATIVE (NEGATIVE); LEUKOCYTE ESTERASE ,URINE NEGATIVE Leu/uL (NEGATIVE); NITRATE,URINE NEGATIVE (NEGATIVE); OCCULT BLOOD,URINE NEGATIVE (NEGATIVE)
[2025-08-05 14:37] LABS: ADD UA MICROSCOPIC NO
[2025-08-05] MEDS ORDERED: PoTASSium chl 10% ELIXIR 20MEQ 20 MEQ/15 ML UDCUP PO PRN (15:00)
[2025-08-05] MEDS ORDERED: PoTASSium chloRIDE 20MEQ ER 20 MEQ ERTAB PO PRN (15:00)
[2025-08-05] MEDS ORDERED: MAGNESIUM 2GM PREMIX 50ML 50 ML IV PRN (15:00)
--- NOTE | 2025-08-05 15:25 | HP ---
[facility] Date of Service: Aug 05, 2025 Time of Service: 15:25 HISTORY OF PRESENT ILLNESS: 89-year-old male with past medical history of CHF, hyperlipidemia, hypertension who presented to the hospital secondary to lower extremity swelling. Patient states for the past one week he has noted that he has swelling in bilateral lower extremity. He also feels short of breath with exertion. He endorses orthopnea but denied any PND. Denied any fever, chills but complains of cough which is nonproductive. Denied any chest pain, abdominal pain, nausea,. Denied any dysuria. He is on Lasix 20 oral at home. Denied any changes in his weight. He has had decreased appetite and denied any changes in his bowel movement. Labs were notable for white count of 2.4, hemoglobin was 11.1 Platelet count [place] [address], sodium was 140, potassium was 4.4 creatinine was 1.2, BNP was elevated at 3020, troponin was negative x1 Chest x-ray showed right-sided small pleural effusion REVIEW OF SYSTEMS CONSTITUTIONAL: Denies fevers, chills, or night sweats. No unintentional weight loss reported. NEUROLOGICAL: Denies headache, amaurosis fugax, motor weakness, sensory deficit, vertigo/spinning sensation, gait abnormalities, or tremors. ENT: No hearing loss, otalgia, otorrhea, rhinitis, rhinorrhea, hoarseness, or sore throat. CARDIOVASCULAR: Denies any exertional angina, dyspnea on exertion, paroxysmal nocturnal dyspnea, palpitations, life-threatening arrhythmias, claudication. Positive for orthopnea PULMONARY: Positive for shortness of breath, cough. Denied any sputum production GASTROINTESTINAL: Denies any type of dysphagia to either liquids or solids. Denies nausea, vomiting, pyrosis, early satiety, abdominal pain, diarrhea, constipation, or changes in stool consistency or caliber. Denies coffee-ground emesis, hematemesis, hematochezia, or melanotic stools. GENITOURINARY: Denies frequency, urgency, nocturia, hematuria or incontinence (Storage/Irritative symptoms.) Low urinary stream, straining to void, urinary intermittency or hesitancy, splitting of the voiding stream, terminal dribbling. ENDOCRINOLOGIC: Denies polyuria, polydipsia, polyphagia or heat/cold intolerances. HEMATOLOGIC: Denies thrombophilia/previous clots, or coagulopathy/bleeding disorders. ONCOLOGIC: Denies personal history of malignancy. DERMATOLOGIC: Denies rashes or pruritus. PSYCHIATRIC: Denies any suicidal or homicidal ideation. Denies hallucinations. PAST MEDICAL HISTORY: CHF, hyperlipidemia, hypertension PAST SURGICAL HISTORY: History history of hip surgery, hernia repair history of cardiac stent placed history of tooth removal PAST SOCIAL HISTORY: Denied any smoking, alcohol, drug use FAMILY HISTORY: Denied any pertinent family Coded Allergies: Penicillins (Unverified Allergy, Intermediate, SWELLING, 05/09/16) RASH PHYSICAL EXAM GENERAL APPEARANCE: The patient is awake, alert, and oriented, in no acute cardiopulmonary distress. NEUROLOGICAL: Cranial nerves II-XII grossly intact. Motor is 5/5 in bilateral upper and lower extremities proximal to distal. No sensory deficits. HEENT: Face is symmetric. Pupils are equal and reactive. Extraocular movements are intact. NECK: Supple. No JVD. No thyromegaly. No submental, submandibular, pre- /postauricular, occipital or supraclavicular lymphadenopathy. CHEST: Normal chest expansion. No Telemetry. LUNGS: Absence of any rales, rhonchi or any wheezing. CARDIOVASCULAR: Regular. S1 and S2 normal. No appreciable rubs, murmurs or gallops. ABDOMEN: Soft, nontender, and nondistended. There is no rebound, voluntary guarding, or rigidity. : Deferred. No Bryson. EXTREMITIES: 3+ pitting edema in the bilateral lower extremity. There is chronic venous stasis changes SKIN: No skin breakdown. Vital Sign (Last 24 Hours) 08/05/25 12:50 Temp 97.9 Pulse 74 Resp 20 B/P (MAP) 107/58 Pulse Ox 100 O2 Delivery Room Air* O2 Flow Rate 0 FiO2 21 LABS: Laboratory: Test 08/05/25 14:19 08/05/25 12:24 Range/Units Urine Color LIGHT-YELLOW YELLOW Urine Appearance CLEAR CLEAR Urine pH 6.5 5.0-8.0 Urine Specific [place] 1.010 1.001-1.031 Urine Protein NEGATIVE NEGATIVE mg/dL Urine Glucose (UA) NEGATIVE NEGATIVE mg/dL Urine Ketones NEGATIVE NEGATIVE mg/dL Urine Occult Blood NEGATIVE NEGATIVE Urine Nitrate NEGATIVE NEGATIVE Urine Bilirubin NEGATIVE NEGATIVE mg/dL Urine Urobilinogen 0.2 0.2-1.0 mg/dL Urine Leukocyte Esterase NEGATIVE NEGATIVE Qasim/uL White Blood Count 2.4 L 4.8-10.8 K/uL Red Blood Count 3.46 L 4.50-6.20 MIL/uL Hemoglobin 11.1 L 14.0-18.0 g/dL Hematocrit 34.3 L 42-54 % Mean Corpuscular Volume 99.1 H 79-99 fL Mean Corpuscular Hemoglobin 32.1 27.0-33.0 pg Mean Corpuscular Hemoglobin Concent 32.4 32.0-36.0 g/dL Red Cell Distribution Width 14.6 11.0-15.5 % Platelet Count 76 L 130-400 K/uL Mean Platelet Volume 11.3 H 7.5-10.5 fL Immature Granulocyte % (Auto) 0.0 0-1 % Neutrophils (%) (Auto) 68.8 40.0-77.0 % Lymphocytes (%) (Auto) 22.6 21.0-51.0 % Monocytes (%) (Auto) 8.2 3.0-13.0 % Eosinophils (%) (Auto) 0.4 0.0-8.0 % Basophils (%) (Auto) 0.0 0.0-5.0 % Neutrophils # (Auto) 1.7 L 1.8-7.7 K/uL Lymphocytes # (Auto) 0.6 L 1.0-4.8 K/uL Monocytes # (Auto) 0.2 0.1-1.0 K/uL Eosinophils # (Auto) 0.01 0.00-0.70 K/uL Basophils # (Auto) 0.00 0.00-0.20 K/uL Absolute Immature Granulocyte (auto 0.00 0-1 K/uL Segmented Neutrophils % 71 H 40-70 % Lymphocytes % (Manual) 22 22-44 % Monocytes % (Manual) 6 2-9 % Basophils % (Manual) 1 0-2 % Nucleated Red Blood Cells 0.0 0.0-0.19 % Differential Comment MANUAL DIFFERENTIAL White Cell Morphology Comment NORMAL Platelet Morphology Comment DECREASED Red Blood Cell Morphology See comments Sodium Level 140 136-145 mmol/L Potassium Level 4.4 3.5-5.1 mmol/L Chloride Level 103 101-111 mmol/L Carbon Dioxide Level 31 21-32 mmol/L Blood Urea Nitrogen 25 H 7-18 mg/dL Creatinine 1.2 0.5-1.3 mg/dL Glomerular Filtration Rate Calc 58 >90 mL/min Random Glucose 122 H 70-105 mg/dL Total Calcium 9.1 8.5-10.1 mg/dL Total Creatine Kinase 63 21-232 U/L Troponin I High Sensitivity 48.2 4-75 ng/L B-Type Natriuretic Peptide 3020 H 0-100 pg/mL Current Medications Medications (Trade) Dose Ordered Sig/Rossy Route PRN Reason Start Time Stop Time Status Last Admin Dose Admin Acetaminophen (TYLenol 500MG TAB) 500 mg Q6H PRN PO MILD PAIN (1-3) 08/05/25 15:00 09/04/25 14:59 Famotidine (Pepcid 20mg Vial) 20 mg BID IV 08/05/25 21:00 09/04/25 20:59 Furosemide (LASix 40MG VIAL) 40 mg Q12H IV 08/05/25 21:00 09/04/25 20:59 Magnesium Sulfate 50 ml @ 0 mls/hr PROTOCOL PRN IV hypomagnesium 08/05/25 15:00 09/04/25 14:59 Potassium Chloride 100 ml @ 100 mls/hr AD PRN IV POTASSIUM PROTOCOL 08/05/25 15:00 09/04/25 14:59 Potassium Chloride (K-Dur/Klor-Con 20meq) 20 meq AD PRN PO POTASSIUM PROTOCOL 08/05/25 15:00 09/04/25 14:59 Potassium Chloride (KCl 10% Elixir 20meq/15ml) 20 meq AD PRN PO POTASSIUM PROTOCOL 08/05/25 15:00 09/04/25 14:59 DIAGNOSTICS / RADIOLOGY: [ ] ASSESSMENT: Suspected acute on chronic CHF exacerbation with systolic dysfunction Bilateral lower extremity edema Shortness of breadth likely in setting of CHF exacerbation Right-sided pleural effusion Hypertension Hyperlipidemia Coronary artery disease Advanced age PLAN: - patient to be admitted to [facility] - In reference to CHF exacerbation. Patient will continue on Lasix 40 mg IV b.i.d.. Strict intake output and daily weights. Obtain echocardiogram. We will request consultation with Cardiology -keep potassium greater than four and magnesium greater than two -obtain a venous Doppler of the lower extremity -obtain home medications which will be reconciled once available -check TSH, hemoglobin A1c -further orders per hospitalization Advanced Care Planning Which of the following were discussed: Hospice care: Yes __ No _x_ Therapeutic options: Yes __ No __ Advance directives: Yes __ No __ Other discussions: Discussed with who?: patient (Patient, family or surrogates) Voluntary nature of this service was explained to the patient? Yes _x_ No __ Amount of time spent: 25 minutes CHERYL Price MD, MD Aug 05, 2025 15:25
--- NOTE | 2025-08-05 16:03 | HMCIMG ---
US VENOUS DOPPLER BILATERAL REASON: assess for dvt COMPARISON: None Technique: Bilateral venous doppler ultrasound was performed with spectral analysis and color flow imaging technique. FINDINGS: There is a normal appearance of the common femoral, deep femoral, the profunda femoris and popliteal veins. Proximal calf veins appear normal as well. There is normal response to compression and augmentation. There is no evidence of deep venous thrombosis.... There is pulsatile flow bilaterally. IMPRESSION: Normal bilateral lower extremity venous Doppler ultrasound.
[2025-08-05] MEDS ORDERED: FAMO40TA7 PO (16:44)
[2025-08-05] MEDS ORDERED: SILO8CAP2 PO (16:44)
[2025-08-05] MEDS ORDERED: SACU1TAB7 PO (16:44)
[2025-08-05] MEDS ORDERED: CYAN250010 PO (16:44)
[2025-08-05] MEDS ORDERED: SPIR25TA6 PO (16:44)
--- NOTE | 2025-08-05 18:01 | CONS ---
Cardiology Consult Note Attending Provider Relations Rep: Dr. Abel Pompa Primary Provider Relations Rep: Dr. Hector Rowell Consulting Physician: Hospitalist Date of Service: 08/05/2025 Reason for Consult: Acute HFrEF HPI: This is an 89y/o male with a past medical history of HTN, HLP, CKD stage III, abnormal Lexiscan stress test done on 12/31/2022, 1V+branch CAD (80% stenosis in the proximal LAD, serial lesions with 90%, 80%, and 90% stenosis in the mid- distal LAD, 100% stenosis (SENIOR SQL SERVER DBA) in the proximal D1, 40% stenosis in the ostial LCx, 80% stenosis in the proximal OM1, 60% stenosis in the ostial RCA, 100% stenosis (SENIOR SQL SERVER DBA) in the proximal RPDA), medically managed due to poor targets and 01/13/2023, HFrEF (LVEF: 25-30% by echo done 10/09/2024), and ICM who presents with bilateral lower extremity swelling of 4 days in duration. The symptoms began spontaneously and over the ensuing timeframe have been constant and have progressively worsened. The symptoms were present throughout the day, were exacerbated by prolonged episodes of sitting or standing, and minimally improve with leg elevation. Associated symptoms include PND. Pertinent negatives include headache, dizziness, syncope, chest pain, chest pressure, palpitations, shortness of breath, orthopnea, abdominal pain, nausea, vomiting, weight gain, diaphoresis, fever, or chills. The patient's progression of symptoms prompted him to seek a higher level of care. While on the inpatient service, laboratory data identified an elevated BNP level. Cardiology was consulted for treatment recommendations. PMH: Listed above PSH: Listed above FH: Significant for CAD, HTN, HLP, DMII SH: Denies alcohol, tobacco, or illicit drug use. Allergies: Coded Allergies: Penicillins (Unverified Allergy, Intermediate, SWELLING, 05/09/16) RASH Review of systems: General: Denies fever or chills HEENT: Denies changes in vision, earache or sore throat Neck: Denies pain or stiffness Cardio: As per the HPI Pulm: As per the HPI GI: Denies abdominal pain, nausea, vomiting, diarrhea, or constipation. MSK: Denies decreased ROM or joint pain. Heme: Denies anemia, easy bruising, or bleeding. Neuro: Denies headache, dizziness, or syncope. Psyche: Denies anxiety, depression, or suicidal ideation. Physical Exam: Vital Signs Date Time Temp Pulse Resp B/P (MAP) Pulse Ox O2 Delivery O2 Flow Rate FiO2 08/05/25 16:20 97.5 77 18 115/61 99 Room Air 08/05/25 15:28 0 21 General: Alert and oriented. NAD. Chronically ill appearing. HEENT: NC/AT. Oral mucosa is moist. Neck: No masses, JVD, or carotid bruits Lungs: NRD. SCM. Bilateral air entry. Diminished breath sounds noted throughout. Cardio: Regular rate. Normal S1 and S2. Systolic murmur best heard at the apex. Abdomen: Soft. NT. ND. Normal active bowel sounds x 4 quadrants. Extremities: Diminished throughout. 2+ pitting edema (R>L) with erythema noted to the bilateral lower extremities. Neuro: CN II-XII were grossly intact. No focal deficits. Labs: Laboratory Tests Test 08/05/25 12:24 08/05/25 14:19 Range/Units White Blood Count 2.4 L 4.8-10.8 K/uL Red Blood Count 3.46 L 4.50-6.20 MIL/uL Hemoglobin 11.1 L 14.0-18.0 g/dL Hematocrit 34.3 L 42-54 % Mean Corpuscular Volume 99.1 H 79-99 fL Mean Corpuscular Hemoglobin 32.1 27.0-33.0 pg Mean Corpuscular Hemoglobin Concent 32.4 32.0-36.0 g/dL Red Cell Distribution Width 14.6 11.0-15.5 % Platelet Count 76 L 130-400 K/uL Mean Platelet Volume 11.3 H 7.5-10.5 fL Immature Granulocyte % (Auto) 0.0 0-1 % Neutrophils (%) (Auto) 68.8 40.0-77.0 % Lymphocytes (%) (Auto) 22.6 21.0-51.0 % Monocytes (%) (Auto) 8.2 3.0-13.0 % Eosinophils (%) (Auto) 0.4 0.0-8.0 % Basophils (%) (Auto) 0.0 0.0-5.0 % Neutrophils # (Auto) 1.7 L 1.8-7.7 K/uL Lymphocytes # (Auto) 0.6 L 1.0-4.8 K/uL Monocytes # (Auto) 0.2 0.1-1.0 K/uL Eosinophils # (Auto) 0.01 0.00-0.70 K/uL Basophils # (Auto) 0.00 0.00-0.20 K/uL Absolute Immature Granulocyte (auto 0.00 0-1 K/uL Segmented Neutrophils % 71 H 40-70 % Lymphocytes % (Manual) 22 22-44 % Monocytes % (Manual) 6 2-9 % Basophils % (Manual) 1 0-2 % Nucleated Red Blood Cells 0.0 0.0-0.19 % Differential Comment MANUAL DIFFERENTIAL White Cell Morphology Comment NORMAL Platelet Morphology Comment DECREASED Red Blood Cell Morphology See comments Sodium Level 140 136-145 mmol/L Potassium Level 4.4 3.5-5.1 mmol/L Chloride Level 103 101-111 mmol/L Carbon Dioxide Level 31 21-32 mmol/L Blood Urea Nitrogen 25 H 7-18 mg/dL Creatinine 1.2 0.5-1.3 mg/dL Glomerular Filtration Rate Calc 58 >90 mL/min Random Glucose 122 H 70-105 mg/dL Total Calcium 9.1 8.5-10.1 mg/dL Total Creatine Kinase 63 21-232 U/L Troponin I High Sensitivity 48.2 4-75 ng/L B-Type Natriuretic Peptide 3020 H 0-100 pg/mL Urine Color LIGHT-YELLOW YELLOW Urine Appearance CLEAR CLEAR Urine pH 6.5 5.0-8.0 Urine Specific [place] 1.010 1.001-1.031 Urine Protein NEGATIVE NEGATIVE mg/dL Urine Glucose (UA) NEGATIVE NEGATIVE mg/dL Urine Ketones NEGATIVE NEGATIVE mg/dL Urine Occult Blood NEGATIVE NEGATIVE Urine Nitrate NEGATIVE NEGATIVE Urine Bilirubin NEGATIVE NEGATIVE mg/dL Urine Urobilinogen 0.2 0.2-1.0 mg/dL Urine Leukocyte Esterase NEGATIVE NEGATIVE Qasim/uL Assessment: -Acute HFrEF (LVEF: 25-30% by echo done 10/09/2024) -Thrombocytopenia -Abnormal Lexiscan stress test done on 12/31/2022 -1V+branch CAD (80% stenosis in the proximal LAD, serial lesions with 90%, 80%, and 90% stenosis in the mid-distal LAD, 100% stenosis (S[employer]IOR [employer] SERVER DBA) in the proximal D1, 40% stenosis in the ostial LCx, 80% stenosis in the proximal OM1, 60% stenosis in the ostial RCA, 100% stenosis (SENIOR SQL SERVER DBA) in the proximal RPDA), medically managed due to poor targets by [facility]/coronary angiogram done on 01/13/2023 -HTN -HLP -CKD stage III -ICM -Macrocytic anemia Plan: 1. Acute HFrEF (LVEF: 25-30% by echo done 10/09/2024) -BNP: 3020 -The patient will continue on furosemide 40 mg IV BID in order to target a 2X increase in the BUN, 30% rise in the creatinine, or a BNP level less than half of what it was upon admission. -In addition, we will restart the patient on metoprolol succinate 25 mg daily. -We will reassess the patient's candidacy for Entresto and spironolactone once he is euvolemic. -Please record strict I/O's, daily weights, and restrict fluids to less than 2.0L/day. 2. 1V+branch CAD (80% stenosis in the proximal LAD, serial lesions with 90%, 80%, and 90% stenosis in the mid-distal LAD, 100% stenosis (SENIOR SQL SERVER DBA) in the proximal D1, 40% stenosis in the ostial LCx, 80% stenosis in the proximal OM1, 60% s tenosis in the ostial RCA, 100% stenosis (SENIOR SQL SERVER DBA) in the proximal RPDA), medically managed due to poor targets by [facility]/coronary angiogram done on 01/13/2023 -Stable -We will restart the patient on aspirin 81 mg daily, metoprolol succinate 25 mg daily, and atorvastatin 40 mg QHS. Thank you for this interesting consult and allowing us to participate in the care of your patient. Further recommendations to follow. This case was seen and discussed with my Supervising Physician, Dr. Abel Pompa, and the above mentioned plan was formulated and agreed upon. -Consult Note written by Jerome Zavala, MSN, CONCRETE PUMP OPERATOR HELPER, AGACNP-BC JEROME ZAVALA Aug 05, 2025 18:01
--- NOTE | 2025-08-05 20:44 | NUR ---
Informed by monitoring room that pt had run of 2nd degree heart block, both type 1 and 2 then having a 1st degree heart block at 1999. Obtained 12 lead ekg. pt denies any discomfort. Paged on-call for cardiology to inform of situation. Dr. Pompa returned page, informed md of results of ekg, ordered to change dose of morning toprol from 25mg daily to 12.5mg, repeated back order.
[2025-08-05] MEDS: SACUBITRIL/VALSARTAN 1 EACH TABLET PO SCH (21:00)
[2025-08-05] MEDS: FAMOTIDINE 20MG VIAL IV SCH (21:34)
[2025-08-06 03:44] VITALS: BP 115/52; PULSE 79; RESP 20; TEMP 97.8
[2025-08-06 08:00] VITALS: BP 118/67; PULSE 68; RESP 18; TEMP 98.3
--- NOTE | 2025-08-06 08:38 | EKG ---
[facility] Test Date: 2025-08-05 Test Time: 20:12:26 Pat Name: SAKINA MARTI Department: [facility] Room: 232 1 Gender: M Safety Person: jerry : 1935 Requested By: CHERYL ADRIAN Order Number: [id number] Reading MD: Mile Melissa Measurements Intervals [place] Rate: 64 P: 57 TN: 261 QRS: -17 QRSD: 125 T: 118 QT: 438 QTc: 477 Interpretive Statements Sinus rhythm Sinus pause Prolonged TN interval LVH with secondary repolarization abnormality Anterior Q waves, possibly due to LVH Compared to ECG 08/05/2025 12:21:31 Sinus pause or arrest now present Left ventricular hypertrophy now present Early repolarization now present Q waves now present Electronically Signed On 08-08-2025 08:56:23 ELECTROMECHANICAL ASSEMBLY TECHNICIAN by Mile Melissa Please click the below link to view image of tracing.
[2025-08-06 09:29] LABS: CREATININE 1.3 mg/dL (0.5-1.3); GLOMERULAR FILTR. RATE CALC 53.0 mL/min (>90); GLUCOSE,RANDOM 97.0 mg/dL (70-105); SODIUM SERUM 138.0 mmol/L (136-145); UREA NITROGEN, BLOOD 28.0 mg/dL (7-18)
[2025-08-06] MEDS: ASPIRIN 81MG CHEW TAB PO SCH (09:38)
[2025-08-06] MEDS: SPIRONOLACTONE 25 MG TAB PO SCH (09:38)
[2025-08-06 12:00] VITALS: BP 98/55; PULSE 75; RESP 18; TEMP 98
--- NOTE | 2025-08-06 13:54 | PN ---
[facility] CARDIOLOGY PROGRESS NOTE Date Patient Seen: Aug 06, 2025 Time of Visit: 13:53 Interval History: [Cr stable ] Physical Examination: GENERAL: [No acute distress.] HEAD: [Normal with no signs of head trauma.] EYES: [PERRLA, EOMI, conjunctiva and sclera normal.] ENT: [Hearing grossly intact, normal oropharynx.] NECK: [Supple without JVD. There is no tenderness, lymphadenopathy, or masses. No thyromegaly. Normal carotid upstrokes without bruits.] LUNGS: [Clear breath sounds bilaterally. There are right basilar rales one third of the way up the chest. No wheezes, or rhonchi.] HEART: [Normal rate and rhythm. Normal S1 and S2 without mumurs, gallop or rub.] VASC: [Peripheral pulses +2 bilaterally.] ABD: [Bowel sounds normal, soft, nontender, no masses, no organomegaly. No audible bruits.] : [Not examined] LYMPH: [No lymphadenopathy noted.] EXT: [No clubbing, cyanosis or edema.] SKIN: [No rashes or lesions noted.] NEURO: [Awake, alert, and oriented x3. No focal sensory or strength deficits noted.] Laboratory: [ ] Hematology Labs: Test 08/05/25 12:24 Range/Units White Blood Count 2.4 L 4.8-10.8 K/uL Red Blood Count 3.46 L 4.50-6.20 MIL/uL Hemoglobin 11.1 L 14.0-18.0 g/dL Hematocrit 34.3 L 42-54 % Mean Corpuscular Volume 99.1 H 79-99 fL Mean Corpuscular Hemoglobin 32.1 27.0-33.0 pg Mean Corpuscular Hemoglobin Concent 32.4 32.0-36.0 g/dL Red Cell Distribution Width 14.6 11.0-15.5 % Platelet Count 76 L 130-400 K/uL Mean Platelet Volume 11.3 H 7.5-10.5 fL Immature Granulocyte % (Auto) 0.0 0-1 % Neutrophils (%) (Auto) 68.8 40.0-77.0 % Lymphocytes (%) (Auto) 22.6 21.0-51.0 % Monocytes (%) (Auto) 8.2 3.0-13.0 % Eosinophils (%) (Auto) 0.4 0.0-8.0 % Basophils (%) (Auto) 0.0 0.0-5.0 % Neutrophils # (Auto) 1.7 L 1.8-7.7 K/uL Lymphocytes # (Auto) 0.6 L 1.0-4.8 K/uL Monocytes # (Auto) 0.2 0.1-1.0 K/uL Eosinophils # (Auto) 0.01 0.00-0.70 K/uL Basophils # (Auto) 0.00 0.00-0.20 K/uL Absolute Immature Granulocyte (auto 0.00 0-1 K/uL Segmented Neutrophils % 71 H 40-70 % Lymphocytes % (Manual) 22 22-44 % Monocytes % (Manual) 6 2-9 % Basophils % (Manual) 1 0-2 % Nucleated Red Blood Cells 0.0 0.0-0.19 % Differential Comment MANUAL DIFFERENTIAL White Cell Morphology Comment NORMAL Platelet Morphology Comment DECREASED Red Blood Cell Morphology See comments Chemistry Labs: Test 08/06/25 06:58 08/05/25 19:33 08/05/25 12:24 Range/Units Sodium Level 138 136-145 mmol/L Potassium Level 4.0 3.5-5.1 mmol/L Chloride Level 103 101-111 mmol/L Carbon Dioxide Level 23 21-32 mmol/L Blood Urea Nitrogen 28 H 7-18 mg/dL Creatinine 1.3 0.5-1.3 mg/dL Glomerular Filtration Rate Calc 53 >90 mL/min Random Glucose 97 70-105 mg/dL Total Calcium 9.4 8.5-10.1 mg/dL Magnesium Level 1.90 1.80-2.40 mg/dL Whole Blood Glucose 121 H 70-110 MG/DL Total Creatine Kinase 63 21-232 U/L Troponin I High Sensitivity 48.2 4-75 ng/L B-Type Natriuretic Peptide 3020 H 0-100 pg/mL Diagnostics / Radiology: [Copy/Paste Echos/Imaging Report here] Impression and Plan: [ -Acute HFrEF (LVEF: 25-30% by echo done 10/09/2024) -Thrombocytopenia -Abnormal Lexiscan stress test done on 12/31/2022 -1V+branch CAD (80% stenosis in the proximal LAD, serial lesions with 90%, 80%, and 90% stenosis in the mid-distal LAD, 100% stenosis (SPLICER OPERATOR) in the proximal D1, 40% stenosis in the ostial LCx, 80% stenosis in the proximal OM1, 60% stenosis in the ostial RCA, 100% stenosis (SPLICER OPERATOR) in the proximal RPDA), medically managed due to poor targets by [facility]/coronary angiogram done on 01/13/2023 -HTN -HLP -CKD stage III -ICM -Macrocytic anemia Plan: 1. Acute HFrEF (LVEF: 25-30% by echo done 10/09/2024) -BNP: 3020 -The patient will continue on furosemide 40 mg IV BID in order to target a 2X increase in the BUN, 30% rise in the creatinine, or a BNP level less than half of what it was upon admission. -In addition, we will restart the patient on metoprolol succinate 25 mg daily. -We will reassess the patient's candidacy for Entresto and spironolactone once he is euvolemic. -Please record strict I/O's, daily weights, and restrict fluids to less than 2.0L/day. 2. 1V+branch CAD (80% stenosis in the proximal LAD, serial lesions with 90%, 80%, and 90% stenosis in the mid-distal LAD, 100% stenosis (SPLICER OPERATOR) in the proximal D1, 40% stenosis in the ostial LCx, 80% stenosis in the proximal OM1, 60% stenosis in the ostial RCA, 100% stenosis (SPLICER OPERATOR) in the proximal RPDA), medically managed due to poor targets by [facility]/coronary angiogram done on 01/13/2023 -Stable -We will restart the patient on aspirin 81 mg daily, metoprolol succinate 25 mg daily, and atorvastatin 40 mg QHS. Thank you for this interesting consult and allowing us to participate in the care of your patient. Further recommendations to follow.] JOYA ANDRE MD Aug 06, 2025 13:54
[2025-08-06 16:00] VITALS: BP 106/63; PULSE 74; RESP 18; TEMP 98.6
--- NOTE | 2025-08-06 16:58 | NUR ---
INITIAL/DCP HOME Met w pt and dtr Leila @ the bedside to discuss dcp. Prior to admission pt was living w his . He is the primary caregiver. He is independent w ambulation and ADLs. He receives 3hrs of caregiver assistance thru the [place]. He was also receiving nsg care thru [facility]. Pt is able to drive himself where needed. He owns a wc, rollator and sh chair if needed. His preferred pharmacy is the [place] or [facility] on [address]. Discharge goal is to return home.
[2025-08-06 20:00] VITALS: BP 104/58; PULSE 69; RESP 18; TEMP 98.3; O2SAT 95
--- NOTE | 2025-08-06 23:24 | PN ---
[facility] PROGRESS NOTE Date of Service: Aug 06, 2025 Time of Service: 23:20 SUBJECTIVE: [ Patient is asleep but awakens easily with verbal stimulation patient was seen on the evening 08/06/2025. Patient states that the swelling is coming down he feels like he is urinating better. He has been receiving IV diuretics. He denies chest pain or shortness of breath present time. ] REVIEW OF SYSTEMS CONSTITUTIONAL: Denies fevers, chills, or night sweats. No unintentional weight loss reported. NEUROLOGICAL: Denies headache, amaurosis fugax, motor weakness, sensory deficit, vertigo/spinning sensation, gait abnormalities, or tremors. ENT: No hearing loss, otalgia, otorrhea, rhinitis, rhinorrhea, hoarseness, or sore throat. CARDIOVASCULAR: Denies any exertional angina, dyspnea on exertion, paroxysmal nocturnal dyspnea, palpitations, life-threatening arrhythmias, claudication. Positive for orthopnea PULMONARY: Positive for shortness of breath, cough. Denied any sputum production GASTROINTESTINAL: Denies any type of dysphagia to either liquids or solids. Denies nausea, vomiting, pyrosis, early satiety, abdominal pain, diarrhea, constipation, or changes in stool consistency or caliber. Denies coffee-ground emesis, hematemesis, hematochezia, or melanotic stools. GENITOURINARY: Denies frequency, urgency, nocturia, hematuria or incontinence (Storage/Irritative symptoms.) Low urinary stream, straining to void, urinary intermittency or hesitancy, splitting of the voiding stream, terminal dribbling. ENDOCRINOLOGIC: Denies polyuria, polydipsia, polyphagia or heat/cold intoleranc es. HEMATOLOGIC: Denies thrombophilia/previous clots, or coagulopathy/bleeding disorders. ONCOLOGIC: Denies personal history of malignancy. DERMATOLOGIC: Denies rashes or pruritus. PSYCHIATRIC: Denies any suicidal or homicidal ideation. Denies hallucinations. PHYSICAL EXAM GENERAL APPEARANCE: The patient is awake, alert, and oriented, in no acute cardiopulmonary distress. NEUROLOGICAL: Cranial nerves II-XII grossly intact. Motor is 5/5 in bilateral upper and lower extremities proximal to distal. No sensory deficits. HEENT: Face is symmetric. Pupils are equal and reactive. Extraocular movements are intact. NECK: Supple. No JVD. No thyromegaly. No submental, submandibular, pre- /postauricular, occipital or supraclavicular lymphadenopathy. CHEST: Normal chest expansion. No Telemetry. LUNGS: Absence of any rales, rhonchi or any wheezing. CARDIOVASCULAR: Regular. S1 and S2 normal. No appreciable rubs, murmurs or gallops. ABDOMEN: Soft, nontender, and nondistended. There is no rebound, voluntary guarding, or rigidity. : Deferred. No Bryson. EXTREMITIES: 1+ pitting edema in the bilateral lower extremity. There is chronic venous stasis changes SKIN: No skin breakdown. Vital Signs (last 8hr) Date Time Temp Pulse Resp B/P (MAP) Pulse Ox O2 Delivery O2 Flow Rate FiO2 08/06/25 20:00 98.2 69 18 104/58 94 Room Air 08/06/25 20:00 95 Room Air* 0 21 08/06/25 16:00 98.6 74 18 106/63 97 Room Air LABS: Laboratory: Test 08/06/25 20:34 08/06/25 06:58 08/05/25 14:19 08/05/25 12:24 Range/Units Whole Blood Glucose 140 H 70-110 MG/DL Sodium Level 138 136-145 mmol/L Potassium Level 4.0 3.5-5.1 mmol/L Chloride Level 103 101-111 mmol/L Carbon Dioxide Level 23 21-32 mmol/L Blood Urea Nitrogen 28 H 7-18 mg/dL Creatinine 1.3 0.5-1.3 mg/dL Glomerular Filtration Rate Calc 53 >90 mL/min Random Glucose 97 70-105 mg/dL Total Calcium 9.4 8.5-10.1 mg/dL Magnesium Level 1.90 1.80-2.40 mg/dL Urine Color LIGHT-YELLOW YELLOW Urine Appearance CLEAR CLEAR Urine pH 6.5 5.0-8.0 Urine Specific [place] 1.010 1.001-1.031 Urine Protein NEGATIVE NEGATIVE mg/dL Urine Glucose (UA) NEGATIVE NEGATIVE mg/dL Urine Ketones NEGATIVE NEGATIVE mg/dL Urine Occult Blood NEGATIVE NEGATIVE Urine Nitrate NEGATIVE NEGATIVE Urine Bilirubin NEGATIVE NEGATIVE mg/dL Urine Urobilinogen 0.2 0.2-1.0 mg/dL Urine Leukocyte Esterase NEGATIVE NEGATIVE Qasim/uL White Blood Count 2.4 L 4.8-10.8 K/uL Red Blood Count 3.46 L 4.50-6.20 MIL/uL Hemoglobin 11.1 L 14.0-18.0 g/dL Hematocrit 34.3 L 42-54 % Mean Corpuscular Volume 99.1 H 79-99 fL Mean Corpuscular Hemoglobin 32.1 27.0-33.0 pg Mean Corpuscular Hemoglobin Concent 32.4 32.0-36.0 g/dL Red Cell Distribution Width 14.6 11.0-15.5 % Platelet Count 76 L 130-400 K/uL Mean Platelet Volume 11.3 H 7.5-10.5 fL Immature Granulocyte % (Auto) 0.0 0-1 % Neutrophils (%) (Auto) 68.8 40.0-77.0 % Lymphocytes (%) (Auto) 22.6 21.0-51.0 % Monocytes (%) (Auto) 8.2 3.0-13.0 % Eosinophils (%) (Auto) 0.4 0.0-8.0 % Basophils (%) (Auto) 0.0 0.0-5.0 % Neutrophils # (Auto) 1.7 L 1.8-7.7 K/uL Lymphocytes # (Auto) 0.6 L 1.0-4.8 K/uL Monocytes # (Auto) 0.2 0.1-1.0 K/uL Eosinophils # (Auto) 0.01 0.00-0.70 K/uL Basophils # (Auto) 0.00 0.00-0.20 K/uL Absolute Immature Granulocyte (auto 0.00 0-1 K/uL Segmented Neutrophils % 71 H 40-70 % Lymphocytes % (Manual) 22 22-44 % Monocytes % (Manual) 6 2-9 % Basophils % (Manual) 1 0-2 % Nucleated Red Blood Cells 0.0 0.0-0.19 % Differential Comment MANUAL DIFFERENTIAL White Cell Morphology Comment NORMAL Platelet Morphology Comment DECREASED Red Blood Cell Morphology See comments Total Creatine Kinase 63 21-232 U/L Troponin I High Sensitivity 48.2 4-75 ng/L B-Type Natriuretic Peptide 3020 H 0-100 pg/mL Current Medications Medications (Trade) Dose Ordered Sig/Rossy Route PRN Reason Start Time Stop Time Status Last Admin Dose Admin Acetaminophen (TYLenol 500MG TAB) 500 mg Q6H PRN PO MILD PAIN (1-3) 08/05/25 15:00 09/04/25 14:59 Aspirin (Aspirin 81mg Chew Tab) 81 mg DAILY PO 08/06/25 09:00 09/05/25 08:59 08/06/25 09:38 81 MG Atorvastatin Calcium (LIPItor 40MG) 40 mg HS PO 08/05/25 21:00 09/04/25 20:59 08/06/25 20:27 40 MG Atorvastatin Calcium (LIPItor 40MG) 40 mg HS PO 08/05/25 21:00 09/04/25 20:59 Cancel Famotidine (Pepcid 20mg Vial) 20 mg BID IV 08/05/25 21:00 09/04/25 20:59 08/06/25 20:27 20 MG Furosemide (LASix 40MG VIAL) 40 mg Q12H IV 08/05/25 21:00 09/04/25 20:59 08/06/25 20:27 40 MG Home Med (Home Medication) (Silodosin (Rapaf... HS PO 08/05/25 21:00 09/04/25 20:59 Magnesium Sulfate 50 ml @ 0 mls/hr PROTOCOL PRN IV hypomagnesium 08/05/25 15:00 09/04/25 14:59 Metoprolol Succinate (TopROL XL) 12.5 mg DAILY PO 08/06/25 09:00 09/05/25 08:59 08/06/25 09:37 12.5 MG Metoprolol Succinate (TopROL XL) 25 mg DAILY PO 08/06/25 09:00 08/06/25 02:36 DC Mirtazapine (REMeron 15 MG TAB) 30 mg HSPRN PO 08/05/25 18:00 09/04/25 17:59 Potassium Chloride 100 ml @ 100 mls/hr AD PRN IV POTASSIUM PROTOCOL 08/05/25 15:00 09/04/25 14:59 Potassium Chloride (K-Dur/Klor-Con 20meq) 20 meq AD PRN PO POTASSIUM PROTOCOL 08/05/25 15:00 09/04/25 14:59 Potassium Chloride (KCl 10% Elixir 20meq/15ml) 20 meq AD PRN PO POTASSIUM PROTOCOL 08/05/25 15:00 09/04/25 14:59 Sacubitril/ Valsartan (Entresto 49 Mg-51 Mg Tablet) 1 each BID PO 08/05/25 21:00 09/04/25 20:59 Hold Spironolactone (Aldactone 25mg) 25 mg DAILY PO 08/06/25 09:00 09/05/25 08:59 08/06/25 09:38 25 MG DIAGNOSTICS / RADIOLOGY: [ ] ASSESSMENT: Suspected acute on chronic CHF exacerbation with systolic dysfunction Bilateral lower extremity edema Shortness of breadth likely in setting of CHF exacerbation Right-sided pleural effusion Hypertension Hyperlipidemia Coronary artery disease Advanced age PLAN: - patient to be admitted to [facility]U - In reference to CHF exacerbation. Patient will continue on Lasix 40 mg IV b.i.d.. Strict intake output and daily weights. Obtain echocardiogram. We will request consultation with Cardiology Patient's swelling has come down. His blood pressures remain soft around 100 systolic over 60s. Lying in bed patient reports no dizziness or lightheadedness. Patient has not ambulated for the nursing staff and also not having any lightheadedness chest pain or shortness for breath. Venous Dopplers negative for DVT We will reconcile the patient's home medication -check TSH, hemoglobin A1c -further orders per hospitalization Advanced Care Planning Amount of time spent: 25 minutes SUJATHA Salcido MD, MD Aug 06, 2025 23:24
[2025-08-07] VITALS (8 sets, daily range): BP systolic 97–112; BP diastolic 54–64; PULSE 68–78; RESP 18; TEMP 97.6–98.5; O2SAT 97–98
[2025-08-07 03:44] LABS: IMMATURE GRANULOCYTE ABSOLUTE 0.01 K/uL (0-1); NUCLEATED RED BLOOD CELLS 0.0 % (0.0-0.19); PLATELET COUNT (AUTO) 84 K/uL (130-400); RED BLOOD CELL COUNT(AUTO) 3.59 MIL/uL (4.50-6.20); RED CELL DISTRIBUTION WIDTH 14.0 % (11.0-15.5); WHITE BLOOD COUNT (AUTO) 2.9 K/uL (4.8-10.8)
[2025-08-07 04:24] LABS: CREATININE 1.5 mg/dL (0.5-1.3); GLOMERULAR FILTR. RATE CALC 44.0 mL/min (>90); GLUCOSE,RANDOM 105.0 mg/dL (70-105); SODIUM SERUM 139.0 mmol/L (136-145); UREA NITROGEN, BLOOD 33.0 mg/dL (7-18)
--- NOTE | 2025-08-07 10:25 | PN ---
[facility] CARDIOLOGY PROGRESS NOTE Date Patient Seen: Aug 07, 2025 Time of Visit: 10:22 Interval History: [Cr up 1.5 ] Physical Examination: GENERAL: [No acute distress.] HEAD: [Normal with no signs of head trauma.] EYES: [PERRLA, EOMI, conjunctiva and sclera normal.] ENT: [Hearing grossly intact, normal oropharynx.] NECK: [Supple without JVD. There is no tenderness, lymphadenopathy, or masses. No thyromegaly. Normal carotid upstrokes without bruits.] LUNGS: [Clear breath sounds bilaterally. There are right basilar rales one third of the way up the chest. No wheezes, or rhonchi.] HEART: [Normal rate and rhythm. Normal S1 and S2 without mumurs, gallop or rub.] VASC: [Peripheral pulses +2 bilaterally.] ABD: [Bowel sounds normal, soft, nontender, no masses, no organomegaly. No audible bruits.] : [Not examined] LYMPH: [No lymphadenopathy noted.] EXT: [No clubbing, cyanosis or edema.] SKIN: [No rashes or lesions noted.] NEURO: [Awake, alert, and oriented x3. No focal sensory or strength deficits noted.] Laboratory: [ ] Hematology Labs: Test 08/07/25 03:21 08/05/25 12:24 Range/Units White Blood Count 2.9 L 4.8-10.8 K/uL Red Blood Count 3.59 L 4.50-6.20 MIL/uL Hemoglobin 11.7 L 14.0-18.0 g/dL Hematocrit 34.2 L 42-54 % Mean Corpuscular Volume 95.3 79-99 fL Mean Corpuscular Hemoglobin 32.6 27.0-33.0 pg Mean Corpuscular Hemoglobin Concent 34.2 32.0-36.0 g/dL Red Cell Distribution Width 14.0 11.0-15.5 % Platelet Count 84 L 130-400 K/uL Mean Platelet Volume 11.2 H 7.5-10.5 fL Immature Granulocyte % (Auto) 0.3 0-1 % Neutrophils (%) (Auto) 64.6 40.0-77.0 % Lymphocytes (%) (Auto) 19.5 L 21.0-51.0 % Monocytes (%) (Auto) 15.3 H 3.0-13.0 % Eosinophils (%) (Auto) 0.0 0.0-8.0 % Basophils (%) (Auto) 0.3 0.0-5.0 % Neutrophils # (Auto) 1.9 1.8-7.7 K/uL Lymphocytes # (Auto) 0.6 L 1.0-4.8 K/uL Monocytes # (Auto) 0.4 0.1-1.0 K/uL Eosinophils # (Auto) 0.00 0.00-0.70 K/uL Basophils # (Auto) 0.01 0.00-0.20 K/uL Absolute Immature Granulocyte (auto 0.01 0-1 K/uL Nucleated Red Blood Cells 0.0 0.0-0.19 % Segmented Neutrophils % 71 H 40-70 % Lymphocytes % (Manual) 22 22-44 % Monocytes % (Manual) 6 2-9 % Basophils % (Manual) 1 0-2 % Differential Comment MANUAL DIFFERENTIAL White Cell Morphology Comment NORMAL Platelet Morphology Comment DECREASED Red Blood Cell Morphology See comments Chemistry Labs: Test 08/07/25 03:21 08/06/25 20:34 08/06/25 06:58 08/05/25 12:24 Range/Units Sodium Level 139 136-145 mmol/L Potassium Level 4.1 3.5-5.1 mmol/L Chloride Level 99 L 101-111 mmol/L Carbon Dioxide Level 33 H 21-32 mmol/L Blood Urea Nitrogen 33 H 7-18 mg/dL Creatinine 1.5 H 0.5-1.3 mg/dL Glomerular Filtration Rate Calc 44 >90 mL/min Random Glucose 105 70-105 mg/dL Hemoglobin A1c 5.6 4.0-6.0 % Estimated Average Glucose (eAG) 114 70-126 mg/dL Total Calcium 9.2 8.5-10.1 mg/dL B-Type Natriuretic Peptide 2490 H 0-100 pg/mL Thyroid Stimulating Hormone (TSH) 5.37 H 0.36-3.74 uIU/mL Whole Blood Glucose 140 H 70-110 MG/DL Magnesium Level 1.90 1.80-2.40 mg/dL Total Creatine Kinase 63 21-232 U/L Troponin I High Sensitivity 48.2 4-75 ng/L Diagnostics / Radiology: [Copy/Paste Echos/Imaging Report here] Impression and Plan: [ -Acute HFrEF (LVEF: 25-30% by echo done 10/09/2024) -Thrombocytopenia -Abnormal Lexiscan stress test done on 12/31/2022 -1V+branch CAD (80% stenosis in the proximal LAD, serial lesions with 90%, 80%, and 90% stenosis in the mid-distal LAD, 100% stenosis (PATTERN HAND) in the proximal D1, 40% stenosis in the ostial LCx, 80% stenosis in the proximal OM1, 60% stenosis in the ostial RCA, 100% stenosis (PATTERN HAND) in the proximal RPDA), medically managed due to poor targets by [facility]/coronary angiogram done on 01/13/2023 -HTN -HLP -CKD stage III -ICM -Macrocytic anemia Plan: 1. Acute HFrEF (LVEF: 25-30% by echo done 10/09/2024) -BNP: 3020 -The patient will continue on furosemide 40 mg IV BID in order to target a 2X increase in the BUN, 30% rise in the creatinine, or a BNP level less than half of what it was upon admission. -stopped metoprolol succinate 12.5 mg daily due to low BP -We will reassess the patient's candidacy for Entresto and spironolactone once he is euvolemic. -Please record strict I/O's, daily weights, and restrict fluids to less than 2.0L/day. 2. 1V+branch CAD (80% stenosis in the proximal LAD, serial lesions with 90%, 80%, and 90% stenosis in the mid-distal LAD, 100% stenosis (PATTERN HAND) in the proximal D1, 40% stenosis in the ostial LCx, 80% stenosis in the proximal OM1, 60% stenosis in the ostial RCA, 100% stenosis (PATTERN HAND) in the proximal RPDA), medically managed due to poor targets by [facility]/coronary angiogram done on 01/13/2023 -Stable - aspirin 81 mg daily, metoprolol succinate 25 mg daily, and atorvastatin 40 mg QHS. Thank you for this interesting consult and allowing us to participate in the care of your patient. Further recommendations to follow.] JOYA ANDRE MD Aug 07, 2025 10:25
--- NOTE | 2025-08-07 14:31 | HMCIMG ---
EXAM: CR Chest, 1 View. CLINICAL HISTORY: CHF COMPARISON: Compared with the previous radiograph dated 08/05/2025. FINDINGS: LUNGS: Bilateral interstitial opacities, concerning for pulmonary edema (right greater than left). There is no mass or consolidation. PLEURAL SPACES: Small right pleural effusion. No pneumothorax. MEDIASTINUM: Mild to moderate cardiomegaly and central pulmonary vascular congestion. BONES: No aggressively appearing osseous lesion is seen. IMPRESSION: 1. Bilateral interstitial opacities, right greater than left, concerning for pulmonary edema, with a small right pleural effusion. 2. Mild to moderate cardiomegaly and central pulmonary vascular congestion. 3. Findings are stable as compared with the previous radiograph dated 08/05/2025 and concerning for mild congestive heart failure in the appropriate clinical context. /[place]
--- NOTE | 2025-08-07 20:54 | NUR ---
PER PATIENT LAST BM SINCE 08/05/25. DENIES ANY ABDOMINAL PAIN. STATES TRIED TO HAVE A BM BUT STRAINS ALOT AND UNABLE TO HAVE BM. PAGED HOSPITALIST TO REPORT. PATIENT REPORTS THAT HE TAKES MILK OF MAGNESIA AT HOME. REPORTED TO Renetta JULIO NP. ORDERED. COLACE 100MG PO X1.
--- NOTE | 2025-08-07 21:45 | NUR ---
DR MATHIS ROUNDED. ORDERED REPEAT CXR IN AM, COLACE 100MG BID, NEOSPORIN APPLY TO RIGHT HAND MIDDLE FINGER SKIN TEAR, MILK OF MANGESIA 30ML PO X1 IF NO BM WITH COLACE 100MG PO X1 DOSE. STATED TO ATTEMPT TO GIVE WARM PRUNE JUICE ALSO.
[2025-08-07] MEDS ORDERED: PHARMACY COMMUNICATION MISC SCH (22:00)
[2025-08-07] MEDS: NEOMY SULF/BACITRA/POLYMYXIN B 1 EACH PACKET TP SCH (23:30)
[2025-08-07] MEDS: PHARMACY COMMUNICATION MISC ONE (23:31)
[2025-08-08] VITALS: BP 104/57; PULSE 80; RESP 18; TEMP 98
[2025-08-08] MEDS: MAGNESIUM HYDROXIDE 30 ML/UDCUP PO PRN (00:56)
[2025-08-08 04:00] VITALS: BP 106/55; PULSE 75; RESP 18; TEMP 98.2
[2025-08-08 07:58] VITALS: BP 107/61; PULSE 70; RESP 18; TEMP 97.5
[2025-08-08 08:00] VITALS: O2SAT 99
--- NOTE | 2025-08-08 10:15 | PN ---
[facility] CARDIOLOGY PROGRESS NOTE Date Patient Seen: Aug 08, 2025 Time of Visit: 10:10 Interval History: [Cr up 1.5 ] Physical Examination: GENERAL: [No acute distress.] HEAD: [Normal with no signs of head trauma.] EYES: [PERRLA, EOMI, conjunctiva and sclera normal.] ENT: [Hearing grossly intact, normal oropharynx.] NECK: [Supple without JVD. There is no tenderness, lymphadenopathy, or masses. No thyromegaly. Normal carotid upstrokes without bruits.] LUNGS: [Clear breath sounds bilaterally. There are right basilar rales one third of the way up the chest. No wheezes, or rhonchi.] HEART: [Normal rate and rhythm. Normal S1 and S2 without mumurs, gallop or rub.] VASC: [Peripheral pulses +2 bilaterally.] ABD: [Bowel sounds normal, soft, nontender, no masses, no organomegaly. No audible bruits.] : [Not examined] LYMPH: [No lymphadenopathy noted.] EXT: [No clubbing, cyanosis or edema.] SKIN: [No rashes or lesions noted.] NEURO: [Awake, alert, and oriented x3. No focal sensory or strength deficits noted.] Laboratory: [ ] Hematology Labs: Test 08/07/25 03:21 Range/Units White Blood Count 2.9 L 4.8-10.8 K/uL Red Blood Count 3.59 L 4.50-6.20 MIL/uL Hemoglobin 11.7 L 14.0-18.0 g/dL Hematocrit 34.2 L 42-54 % Mean Corpuscular Volume 95.3 79-99 fL Mean Corpuscular Hemoglobin 32.6 27.0-33.0 pg Mean Corpuscular Hemoglobin Concent 34.2 32.0-36.0 g/dL Red Cell Distribution Width 14.0 11.0-15.5 % Platelet Count 84 L 130-400 K/uL Mean Platelet Volume 11.2 H 7.5-10.5 fL Immature Granulocyte % (Auto) 0.3 0-1 % Neutrophils (%) (Auto) 64.6 40.0-77.0 % Lymphocytes (%) (Auto) 19.5 L 21.0-51.0 % Monocytes (%) (Auto) 15.3 H 3.0-13.0 % Eosinophils (%) (Auto) 0.0 0.0-8.0 % Basophils (%) (Auto) 0.3 0.0-5.0 % Neutrophils # (Auto) 1.9 1.8-7.7 K/uL Lymphocytes # (Auto) 0.6 L 1.0-4.8 K/uL Monocytes # (Auto) 0.4 0.1-1.0 K/uL Eosinophils # (Auto) 0.00 0.00-0.70 K/uL Basophils # (Auto) 0.01 0.00-0.20 K/uL Absolute Immature Granulocyte (auto 0.01 0-1 K/uL Nucleated Red Blood Cells 0.0 0.0-0.19 % Chemistry Labs: Test 08/07/25 03:21 08/06/25 20:34 Range/Units Sodium Level 139 136-145 mmol/L Potassium Level 4.1 3.5-5.1 mmol/L Chloride Level 99 L 101-111 mmol/L Carbon Dioxide Level 33 H 21-32 mmol/L Blood Urea Nitrogen 33 H 7-18 mg/dL Creatinine 1.5 H 0.5-1.3 mg/dL Glomerular Filtration Rate Calc 44 >90 mL/min Random Glucose 105 70-105 mg/dL Hemoglobin A1c 5.6 4.0-6.0 % Estimated Average Glucose (eAG) 114 70-126 mg/dL Total Calcium 9.2 8.5-10.1 mg/dL B-Type Natriuretic Peptide 2490 H 0-100 pg/mL Thyroid Stimulating Hormone (TSH) 5.37 H 0.36-3.74 uIU/mL Free Thyroxine (T4) Direct 1.07 0.76-1.46 ng/dL Free Triiodothyronine (T3) pg/mL 2.24 2.18-3.98 pg/mL Whole Blood Glucose 140 H 70-110 MG/DL Diagnostics / Radiology: [Copy/Paste Echos/Imaging Report here] Impression and Plan: [ -Acute HFrEF (LVEF: 25-30% by echo done 10/09/2024) -Thrombocytopenia -Abnormal Lexiscan stress test done on 12/31/2022 -1V+branch CAD (80% stenosis in the proximal LAD, serial lesions with 90%, 80%, and 90% stenosis in the mid-distal LAD, 100% stenosis (ACADEMIC COACH) in the proximal D1, 40% stenosis in the ostial LCx, 80% stenosis in the proximal OM1, 60% stenosis in the ostial RCA, 100% stenosis (ACADEMIC COACH) in the proximal RPDA), medically managed due to poor targets by [facility]/coronary angiogram done on 01/13/2023 -HTN -HLP -CKD stage III -ICM -Macrocytic anemia Plan: 1. Acute HFrEF (LVEF: 25-30% by echo done 10/09/2024) -BNP: 3020 -08/08 changed IV lasix to po -stopped metoprolol succinate 12.5 mg daily due to low BP -We will reassess the patient's candidacy for Entresto in clinic given low BP -Please record strict I/O's, daily weights, and restrict fluids to less than 2.0L/day. 2. 1V+branch CAD (80% stenosis in the proximal LAD, serial lesions with 90%, 80%, and 90% stenosis in the mid-distal LAD, 100% stenosis (ACADEMIC COACH) in the proximal D1, 40% stenosis in the ostial LCx, 80% stenosis in the proximal OM1, 60% stenosis in the ostial RCA, 100% stenosis (ACADEMIC COACH) in the proximal RPDA), medically managed due to poor targets by [facility]/coronary angiogram done on 01/13/2023 -Stable - aspirin 81 mg daily, and atorvastatin 40 mg QHS. I will sign off. He may be discharged with home po lasix 40 mg bid and KCl 20 meq bid with CMP ahead of clinic appt and follow up with Dr Hector Rowell one week after discharge. ] JOYA ROWELL MD Aug 08, 2025 10:15
[2025-08-08 10:53] LABS: NUCLEATED RED BLOOD CELLS 0.0 % (0.0-0.19); PLATELET COUNT (AUTO) 98.0 K/uL (130-400); RED BLOOD CELL COUNT(AUTO) 4.0 MIL/uL (4.50-6.20); RED CELL DISTRIBUTION WIDTH 13.8 % (11.0-15.5); WHITE BLOOD COUNT (AUTO) 4.0 K/uL (4.8-10.8)
[2025-08-08 10:59] LABS: CREATININE 1.6 mg/dL (0.5-1.3); GLOMERULAR FILTR. RATE CALC 41.0 mL/min (>90); GLUCOSE,RANDOM 74.0 mg/dL (70-105); SODIUM SERUM 139.0 mmol/L (136-145); UREA NITROGEN, BLOOD 50.0 mg/dL (7-18)
[2025-08-08 12:00] VITALS: BP 103/59; PULSE 75; RESP 17; TEMP 97.5
[2025-08-08] MEDS ORDERED: POTA-202 PO (12:35)
[2025-08-08] MEDS ORDERED: FURO40TA7 PO (12:35)
--- NOTE | 2025-08-08 13:40 | HMCIMG ---
EXAM: CR Chest, 1 View. CLINICAL HISTORY: CHF COMPARISON: Compared with the previous radiograph dated 08/07/2025. FINDINGS: LUNGS: Stable bilateral interstitial opacities, concerning for pulmonary edema (right greater than left). There is no mass or consolidation. PLEURAL SPACES: Small right pleural effusion. No evidence of left pleural effusion. No pneumothorax. MEDIASTINUM: Mild to moderate cardiomegaly and central pulmonary vascular congestion. BONES: No aggressively appearing osseous lesion is seen. IMPRESSION: Stable bilateral interstitial opacities, right greater than left, concerning for pulmonary edema, with a small right pleural effusion. Mild to moderate cardiomegaly and central pulmonary vascular congestion. Findings are stable as compared with the previous radiograph dated 08/07/2025 and concerning for mild congestive heart failure in the appropriate clinical context. /[place]
--- NOTE | 2025-08-08 14:11 | NUR ---
PATIENT AXOX4 WITH DAUGHTER AT BEDSIDE BEING DISCHARGED HOME. PATIENT EDUCATED TO STOP METOPROLOL, ENTRESTO AND SPIRONOLACTONE UNTIL FURTHER ORDERS FROM DR. ANDRE. PATIENT TO START LASIX 40MG BID STARTING TOMORROW MORNING. PATIENT TO FOLLOW UP WITH CARDIOLOGY PER SCHEDULED RACIEL. IV REMOVED WITHOUT COMPLICATIONS. ALL QUESTIONS ANSWERED, PATIENT AND DAUGHTER VERBALIZED COMPLETE UNDERSTANDING. PATIENT GATHERED ALL BELONGINGS AND TOOK WITH HIM AT [place].
--- NOTE | 2025-08-08 17:41 | DS ---
Discharge Summary Hospital Course Summary: The patient is an 89-year-old male with known ischemic cardiomyopathy and chronic HFrEF (EF 2530%) who presented with progressive bilateral lower extremity edema, orthopnea, and exertional dyspnea. Initial evaluation was notable for markedly elevated BNP (3020 pg/mL), right?sided pleural effusion on chest imaging, and significant volume overload on exam. He was admitted to the PCCU and treated for acute on chronic HFrEF exacerbation with IV furosemide 40 mg BID, strict intake and output monitoring, daily weights, electrolyte replacement, and fluid restriction. Cardiology was consulted and guided heart failure management. BNP improved to 2490 pg/mL with diuresis, and lower extremity edema significantly decreased. Renal function was closely monitored given CKD III, with creatinine rising from a baseline of 1.2 to a peak of 1.5 mg/dL, consistent with diuresis?associated SHAR, prompting transition from IV to oral diuretics. Blood pressures remained borderline low, leading to discontinuation of metoprolol. Entresto was held due to hypotension and deferred for outpatient reassessment. Venous Doppler studies of the lower extremities were negative for DVT. Troponins remained negative. EKG showed sinus rhythm with prolonged OK interval, LVH, and sinus pauses without sustained arrhythmia. Hematologic abnormalities including thrombocytopenia and macrocytic anemia were noted and remained stable without bleeding. TSH was mildly elevated with normal free T4 and T3, consistent with subclinical hypothyroidism. By discharge, the patient was clinically euvolemic, breathing comfortably on room air, ambulating without symptoms, and tolerating oral medications. Equipment Service Lead(s): [facility]- Dr Audrey Rowell Assessment/Plan: PRINCIPAL DISCHARGE DIAGNOSIS: Acute on chronic systolic heart failure (HFrEF), ischemic cardiomyopathy SECONDARY DISCHARGE DIAGNOSES: Chronic HFrEF (LVEF 2530%) Ischemic cardiomyopathy Coronary artery disease, multivessel, medically managed Bilateral lower extremity edema Right?sided pleural effusion Chronic kidney disease, stage III Hypertension Hyperlipidemia Thrombocytopenia Macrocytic anemia Subclinical hypothyroidism Advanced age Admitting Diagnoses: Suspected acute on chronic CHF exacerbation with systolic dysfunction Bilateral lower extremity edema Shortness of breadth likely in setting of CHF exacerbation Right-sided pleural effusion Hypertension Hyperlipidemia Coronary artery disease Advanced age Discharge Instructions: DISCHARGE PLAN: Discharged home Continue oral furosemide 40 mg BID with potassium supplementation Aspirin and statin continued Fluid restriction?2 L/day Daily weights at home CMP prior to cardiology follow-up Follow-up with Dr. Hector Rowell (Cardiology) within 1 week Home Medications: Active Scripts Potassium Chloride (Potassium Chloride) 20 Meq Tab.er.prt, 1 TAB PO BID for 30 Days, #60 TAB 0 Refills Prov:JAZIEL VICENTE AGACNP 08/08/25 Furosemide (Lasix 40Mg Tab) 40 Mg Tablet, 40 MG PO BID, #60 TAB 0 Refills Prov:JAZIEL VICENTE AGACNP 08/08/25 Reported Medications Cyanocobalamin (Vitamin B-12) (Vitamin B12) 2,500 Mcg Tablet, 500 MCG PO DAILY, TAB 08/05/25 Famotidine (Famotidine) 40 Mg Tablet, 40 MG PO DAILY, TAB 08/05/25 Silodosin (Rapaflo) 8 Mg Capsule, 8 MG PO HS, CAP 08/05/25 Mirtazapine (Mirtazapine) 30 Mg Tablet, 30 MG PO HSPRN, TAB 04/22/24 Cholecalciferol (Vitamin D3) (Vitamin D3) 125 Mcg (5000 Unit) Tab.rapdis, 125 MCG PO AM, TAB 04/22/24 Aspirin (Aspirin EC) 81 Mg Tablet.dr, 81 MG PO DAILY, TAB 12/25/21 Atorvastatin Calcium (Atorvastatin Calcium) 40 Mg Tablet, 40 MG PO HS, TAB 12/25/21 Discontinued Reported Medications Spironolactone (Spironolactone) 25 Mg Tablet, 25 MG PO DAILY, TAB 08/05/25 Sacubitril/Valsartan (Entresto 49 mg-51 mg Tablet) 49 Mg-51 Mg Tablet, 1 TAB PO BID for 30 Days, #60 TAB 0 Refills 08/05/25 Furosemide (Furosemide) 20 Mg Tablet, 20 MG PO AM, TAB 04/22/24 Metoprolol Succinate (Metoprolol Succinate) 50 Mg Tab.er.24h, 25 MG PO DAILY, TAB 12/25/21 Omeprazole (Omeprazole) 40 Mg Capsule.dr, 40 MG PO AM, CAP 04/22/24 Potassium Chloride (Klor-Con) 20 Meq Packet, 20 MEQ PO AM, PKT 04/22/24 Silodosin (Silodosin) 4 Mg Capsule, 4 MG PO HS, CAP 04/22/24 Lisinopril (Lisinopril) 2.5 Mg Tablet, 2.5 MG PO DAILY, TAB 01/10/23 Mirabegron (Myrbetriq) 50 Mg Tab.er.24h, 50 MG PO HS, TAB 01/10/23 New Medications: Furosemide (Lasix 40Mg Tab) 40 Mg Tablet 40 MG PO BID, #60 TAB 0 Refills Potassium Chloride (Potassium Chloride) 20 Meq Tab.er.prt 1 TAB PO BID for 30 Days, #60 TAB 0 Refills Continued Medications: Aspirin (Aspirin EC) 81 Mg Tablet.dr 81 MG PO DAILY, TAB Atorvastatin Calcium (Atorvastatin Calcium) 40 Mg Tablet 40 MG PO HS, TAB Cholecalciferol (Vitamin D3) (Vitamin D3) 125 Mcg (5000 Unit) Tab.rapdis 125 MCG PO AM, TAB Cyanocobalamin (Vitamin B-12) (Vitamin B12) 2,500 Mcg Tablet 500 MCG PO DAILY, TAB Famotidine (Famotidine) 40 Mg Tablet 40 MG PO DAILY, TAB Mirtazapine (Mirtazapine) 30 Mg Tablet 30 MG PO HSPRN, TAB Silodosin (Rapaflo) 8 Mg Capsule 8 MG PO HS, CAP Discontinued Medications: Furosemide (Furosemide) 20 Mg Tablet 20 MG PO AM, TAB Metoprolol Succinate (Metoprolol Succinate) 50 Mg Tab.er.24h 25 MG PO DAILY, TAB Sacubitril/Valsartan (Entresto 49 mg-51 mg Tablet) 49 Mg-51 Mg Tablet 1 TAB PO BID for 30 Days, #60 TAB 0 Refills Spironolactone (Spironolactone) 25 Mg Tablet 25 MG PO DAILY, TAB Time spent arranging discharge: 31-60 minutes ATTESTATION BY PHYSICIAN I have seen and examined the patient. I reviewed the documentation, medical decision making, and treatment plan as noted by the mid-level provider above. I agree with the findings and plan of care. Anna Tuttle MD, [facility] Aug 08, 2025 17:41
[2025-08-08] MEDS ORDERED: PoTASSium chloRIDE 20MEQ ER 20 MEQ ERTAB PO SCH (21:00)
== END 2025-08-08 14:25 | disposition home or self-care (01) | DRG 291 ==
LOC: EDH 11:51 → EDHIP 14:31 → 2AH 16:19
PROVIDERS: ADMIT Internal Medicine; ATTEND Internal Medicine
DX: I13.0 Hypertensive heart and chronic kidney disease with heart failure and stage 1 through stage 4 chronic kidney disease, or unspecified chronic kidney disease (principal); I50.23 Acute on chronic systolic (congestive) heart failure; D69.6 Thrombocytopenia, unspecified; N17.9 Acute kidney failure, unspecified; E11.22 Type 2 diabetes mellitus with diabetic chronic kidney disease; D53.9 Nutritional anemia, unspecified; E03.8 Other specified hypothyroidism; N18.30 Chronic kidney disease, stage 3 unspecified; E78.00 Pure hypercholesterolemia, unspecified; I25.10 Atherosclerotic heart disease of native coronary artery without angina pectoris; I25.5 Ischemic cardiomyopathy; I25.82 Chronic total occlusion of coronary artery; Z79.899 Other long term (current) drug therapy; Z95.5 Presence of coronary angioplasty implant and graft
CPT/HCPCS: 36415; 71045; 80048; 81003; 82550; 82948; 83036; 83735; 83880; 84439; 84443; 84481; 84484; 85025; 85027; 93005; 93970; 96374; 99285; G0378; J1938; J1308